=== PATIENT | male | born 1940 | race Caucasian/White ===

== ENCOUNTER 2017-03-24 12:11 | Emergency (ER) | payer MEDICARE, OTHER ==
[~2017-03-24] VITALS: Ht 167.6 cm; Wt 97.5 kg
[~2017-03-24 12:11] MED LIST: ASPI1TAB; ATEN50TA2 PO; BARLEY GRASS; CLOT1CRE71 TOP; COUM2.5T17 PO; CRES5TAB PO; FLAX100012 PO; NEXI40CA PO; PERCOCET PO; TYLE325T5 PO
[2017-03-24] MEDS ORDERED: HYDR-3713 PO (12:22)
[2017-03-24] MEDS ORDERED: MUPI30CR (12:22)
[2017-03-24] MEDS ORDERED: LAMI1CRE EX (14:22)
[2017-03-24 14:31] VITALS: BP 156/97
== END 2017-03-24 14:32 | disposition home or self-care (01) ==
LOC: M ED 12:11
DX: L30.9 Dermatitis, unspecified (principal); L08.9 Local infection of the skin and subcutaneous tissue, unspecified; I10 Essential (primary) hypertension; E78.00 Pure hypercholesterolemia, unspecified; N40.0 Benign prostatic hyperplasia without lower urinary tract symptoms; K76.9 Liver disease, unspecified; Z79.899 Other long term (current) drug therapy; Z79.82 Long term (current) use of aspirin; Z86.73 Personal history of transient ischemic attack (TIA), and cerebral infarction without residual deficits

== ENCOUNTER → 2019-02-11 | Outpatient (CLI) | payer MEDICARE, OTHER ==
[~2019-02-11] MED LIST changes: -ASPI1TAB; +ASPI81TA26; +HYDR-3713 PO; +LAMI1CRE EX; +MUPI30CR
--- NOTE | 2019-02-11 12:38 | REP ---
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 There is slightly increased vascular flow in the soft tissues anterolateral to the right proximal tibia on the vascular phase of the study. On the soft tissue phase of the study there is increased soft tissue uptake anterolateral to the proximal right tibia. On the skeletal phase of the study there is slightly increased uptake along the tibial plateau laterally along the tibial plateau medially of the right knee. There is no increased uptake in the distal femur. There is increased skeletal uptake in the left knee particularly the medial joint line compatible with osteoarthritis. Impression: There is soft tissue uptake and increased vascular flow in the soft tissues anterolateral to the proximal right tibia. There is slightly increased uptake in the medial and lateral portions of the right tibial plateau. There is no uptake in the distal right femur. The skeletal uptake pattern in the left knee is compatible with osteoarthritis. The study is performed with MDP that is radiolabeled with 22 mCi of technetium 99m. Electronically Signed by Jairo Lanier MD 02/11/2019 12:29 P
== END ==
LOC: M RAD 08:55
PROVIDERS: ATTEND Orthopaedic Surgery
DX: M25.561 Pain in right knee (principal)
CPT/HCPCS: 78315; A9503

== ENCOUNTER → 2021-02-09 | Outpatient (CLI) | payer MEDICARE, OTHER ==
--- NOTE | 2021-02-09 13:13 | REP ---
INDICATION: RENAL CYST. COMPARISON: None. FINDINGS: Multiple ultrasonographic images of the right kidney show the right kidney to measure 11.1 x 4.9 x 4.5 cm. The renal cortical echotexture is increased. There are no masses. There is suboptimal corticomedullary differentiation. There is no hydronephrosis. There are no perinephric fluid collections. Seen in the lower pole there is a 1.9 x 1.6 x 1.8 cm sized nearly anechoic structure which exhibits posterior wall enhancement and increased through transmission. Multiple ultrasonographic images of the left kidney show the left kidney to measure 10.7 x 4 x 5.2 cm.. The renal cortical echotexture is increased. There are no masses. There is suboptimal corticomedullary differentiation. There is no hydronephrosis. There are no perinephric fluid collections. IMPRESSION: Evidence of increased renal cortical echoes consistent with the clinical diagnosis of medical renal disease or age-related changes. There is a cyst in the inferior pole of the right kidney. <Electronically signed by Fabian Torres > 02/09/21 [id number]
== END ==
LOC: M RAD 11:47
PROVIDERS: ATTEND Nurse Practitioner Women's Health
DX: N28.1 Cyst of kidney, acquired (principal)

== ENCOUNTER 2022-05-12 11:34 | Emergency (ER) | payer MEDICARE, OTHER ==
[~2022-05-12] VITALS: Ht 167.6 cm; Wt 86.4 kg
[2022-05-12 12:00] VITALS: BP 130/80
== END 2022-05-12 15:10 | disposition home or self-care (01) ==
LOC: M ED 11:34
DX: F43.0 Acute stress reaction (principal); I25.2 Old myocardial infarction; I10 Essential (primary) hypertension; N40.0 Benign prostatic hyperplasia without lower urinary tract symptoms; Z86.73 Personal history of transient ischemic attack (TIA), and cerebral infarction without residual deficits; Z79.82 Long term (current) use of aspirin; Z79.899 Other long term (current) drug therapy

== ENCOUNTER → 2022-11-22 | Outpatient (CLI) | payer MEDICARE, OTHER | LOC: M RAD 13:39 | PROVIDERS: ATTEND Physician Assistant | DX: R10.9 Unspecified abdominal pain (principal) ==

== ENCOUNTER 2023-03-10 09:59 | Inpatient (IN) | payer MEDICARE, OTHER ==
[~2023-03-10] VITALS: Ht 170.2 cm; Wt 80.0 kg
[2023-03-10 11:22] LABS: BASO % 0.7 % (0.0-1.0); EOS # 0.1 10^3/uL (0.0-0.5); HEMATOCRIT 35.3 % (42.0-52.0); HEMOGLOBIN 11.6 g/dl (13.5-17.5); LYMPH # 1.1 10^3/uL (1.5-5.0); LYMPH % 18.3 % (24.0-44.0); MEAN CORPUSCULAR HEMOGLOBIN 29.9 pg (27.0-33.0); MEAN CORPUSCULAR HGB CONC 32.9 g/dl (32.0-36.5); MONO # 0.5 10^3/uL (0.0-0.8); MONO % 8.1 % (2.0-8.0); NEUTROPHILS # 4.3 10^3/uL (1.5-8.5); NEUTROPHILS % 71.6 % (36.0-66.0); PLATELET COUNT, AUTOMATED 205 10^3/uL (150-450); RED BLOOD COUNT 3.88 10^6/uL (4.30-6.10)
[2023-03-10 11:50] LABS: ALBUMIN 3.7 G/DL (3.2-5.2); ALKALINE PHOSPHATASE 94 U/L (46-116); ALT/SGPT 20 U/L (7.0-40); AST/SGOT 26 U/L (<34); BILIRUBIN,DIRECT 0.3 MG/DL (<0.4); BLOOD UREA NITROGEN 13 MG/DL (9-23); CARBON DIOXIDE LEVEL 25 MMOL/L (20-31); CHLORIDE LEVEL 109 MMOL/L (98-107); CK-MB VALUE MASS 5.8 NG/ML (<3.6); CREATININE FOR GFR 1.14 MG/DL (0.70-1.30); GLOMERULAR FILTRATION RATE > 60.0 (>35); GLUCOSE, FASTING 104 MG/DL (74-106); POTASSIUM SERUM 4.4 MMOL/L (3.5-5.1); SODIUM LEVEL 144 MMOL/L (136-145); TOTAL PROTEIN 6.6 G/DL (5.7-8.2)
[2023-03-10 11:53] LABS: CPK CREATINE PHOSPHOKINASE 636 U/L (46-171); MB/CK RELATIVE INDEX 0.91 (< OR =4)
[2023-03-10 15:55] LABS: RSV AMPLIFICATION NEGATIVE (NEGATIVE)
[2023-03-10] MEDS ORDERED: NS 1,000 ML IV SCH (15:55)
[2023-03-10] MEDS ORDERED: LIDOCAINE 2% 5ML JELLY UROJET TOP ONE (16:20)
[2023-03-10] MEDS ORDERED: ISOVUE-370 76% 100ML VIAL As Ordered ONE (17:21)
[2023-03-10] MEDS ORDERED: TAMSULOSIN 0.4 MG CAP PO ONE (17:35)
[2023-03-10] MEDS ORDERED: RAMELTEON 8 MG TAB (ROZEREM) PO PRN (17:35)
[2023-03-10] MEDS ORDERED: oxyCODONE 5MG TAB PO PRN (17:40)
[2023-03-10] MEDS ORDERED: FLOM0.4C39 PO (18:47)
[2023-03-10] MEDS ORDERED: CHOL125C5 PO (18:47)
[2023-03-10] MEDS ORDERED: OLAN1TAB20 PO (18:47)
[2023-03-10] MEDS ORDERED: ROZE8TAB16 PO (18:47)
[2023-03-10] MEDS ORDERED: CALC500T52 PO (18:47)
[2023-03-10] MEDS ORDERED: B-12100010 PO (18:47)
[2023-03-10] MEDS ORDERED: ATOR40TA75 PO (18:47)
[2023-03-10] MEDS ORDERED: HOME MED LIST COMPLETE! XX SCH (18:50)
[2023-03-10] MEDS ORDERED: OLANZapine 5 MG TAB PO ONE (18:50)
[2023-03-10] MEDS ORDERED: OLANZapine INTRAMUSCULAR 10MG VIAL IM PRN (19:40)
[2023-03-10 22:15] VITALS: BP 180/84; TEMP 97.9; O2SAT 96
[2023-03-10] MEDS: LIDOCAINE 5% (LIDODERM) PATCH TD SCH (22:19)
[2023-03-10] MEDS: METAMUCIL (PSYLLIUM) PACKET PO SCH (22:24)
[2023-03-10] MEDS: MIRALAX *UNIT DOSE* 17GM PACKET PO SCH (22:24)
[2023-03-10] MEDS: DICLOFENAC EPOLAMINE 1.3% PATCH TOP SCH (22:24)
[2023-03-10 22:47] VITALS: BP 168/94
[2023-03-10 23:42] VITALS: BP 151/87
[2023-03-11] MEDS ORDERED: HALOPERIDOL 5MG/ML 1ML VIAL IM STA (01:42)
[2023-03-11 06:37] VITALS: BP 123/87; TEMP 97.9; O2SAT 92
[2023-03-11] MEDS ORDERED: SENNA 8.6 MG TAB (SENOKOT) PO PRN (07:25)
[2023-03-11 08:00] VITALS: BP 138/86; TEMP 98.1; O2SAT 94
[2023-03-11] MEDS: VITAMIN D 1,000 INTERNATIONAL UNITS TABLET PO SCH (08:30)
[2023-03-11] MEDS: PANTOPRAZOLE 40MG TAB (PROTONIX) PO SCH (08:30)
[2023-03-11] MEDS: TAMSULOSIN 0.4 MG CAP PO SCH (08:30)
[2023-03-11] MEDS: ACETAMINOPHEN 500 MG TAB PO PRN (08:30)
[2023-03-11] MEDS: DICLOFENAC EPOLAMINE 1.3% PATCH TOP SCH ×2 (08:31→20:56)
[2023-03-11] MEDS: CYANOCOBALAMIN 500 MCG TAB PO SCH (08:31)
[2023-03-11] MEDS: LIDOCAINE 5% (LIDODERM) PATCH TD SCH (08:32)
[2023-03-11] MEDS: ENOXAPARIN 40MG/0.4ML SYRINGE (J1650 PER 10MG) SC SCH (08:33)
[2023-03-11] MEDS ORDERED: OLANZapine 10 MG TAB PO SCH ×3 (09:00)
[2023-03-11] MEDS: METAMUCIL (PSYLLIUM) PACKET PO SCH ×2 (09:00→20:57)
[2023-03-11] MEDS: MIRALAX *UNIT DOSE* 17GM PACKET PO SCH ×2 (09:00→20:57)
[2023-03-11] MEDS ORDERED: OLANZapine 5 MG TAB PO SCH (09:00)
[2023-03-11 09:06] LABS: MEAN CORPUSCULAR HEMOGLOBIN 30.2 pg (27.0-33.0); MEAN CORPUSCULAR HGB CONC 33.3 g/dl (32.0-36.5); MEAN CORPUSCULAR VOLUME 90.5 fl (80.0-96.0); PLATELET COUNT, AUTOMATED 206 10^3/uL (150-450); RED BLOOD COUNT 3.98 10^6/uL (4.30-6.10); WHITE BLOOD COUNT 5.6 10^3/uL (4.0-10.0)
[2023-03-11 09:23] LABS: BLOOD UREA NITROGEN 13 MG/DL (9-23); CALCIUM LEVEL 8.7 MG/DL (8.3-10.6); CARBON DIOXIDE LEVEL 25 MMOL/L (20-31); CHLORIDE LEVEL 110 MMOL/L (98-107); CREATININE FOR GFR 1.08 MG/DL (0.70-1.30); GLOMERULAR FILTRATION RATE > 60.0 (>35); GLUCOSE, FASTING 100 MG/DL (74-106); POTASSIUM SERUM 4.1 MMOL/L (3.5-5.1); SODIUM LEVEL 143 MMOL/L (136-145)
[2023-03-11 09:24] LABS: CPK CREATINE PHOSPHOKINASE 1016 U/L (46-171)
[2023-03-11 12:10] LABS: ALBUMIN 3.5 G/DL (3.2-5.2); ALKALINE PHOSPHATASE 98 U/L (46-116); ALT/SGPT 25 U/L (7.0-40); AST/SGOT 46 U/L (<34); BILIRUBIN,DIRECT 0.5 MG/DL (<0.4); BILIRUBIN,TOTAL 1.3 MG/DL (0.3-1.2); TOTAL PROTEIN 6.3 G/DL (5.7-8.2)
[2023-03-11] MEDS: LR 1,000 ML IV SCH ×2 (13:12→16:38)
[2023-03-11 14:00] VITALS: BP 134/86; TEMP 98.1; O2SAT 93
[2023-03-11] MEDS: RAMELTEON 8 MG TAB (ROZEREM) PO SCH (19:39)
[2023-03-11] MEDS: ATORVASTATIN 20 MG TAB PO SCH (19:41)
[2023-03-11 20:00] VITALS: BP 138/86; TEMP 98.1; O2SAT 94
[2023-03-12] MEDS: LR 1,000 ML IV SCH ×2 (04:26→11:50)
[2023-03-12 05:34] VITALS: BP 165/87; TEMP 98.1; O2SAT 94
[2023-03-12] MEDS: ACETAMINOPHEN 500 MG TAB PO PRN (05:51)
[2023-03-12 06:16] LABS: HEMATOCRIT 35.7 % (42.0-52.0); HEMOGLOBIN 11.9 g/dl (13.5-17.5); MEAN CORPUSCULAR HEMOGLOBIN 30.2 pg (27.0-33.0); MEAN CORPUSCULAR HGB CONC 33.3 g/dl (32.0-36.5); MEAN CORPUSCULAR VOLUME 90.6 fl (80.0-96.0); PLATELET COUNT, AUTOMATED 199 10^3/uL (150-450); RED BLOOD COUNT 3.94 10^6/uL (4.30-6.10); WHITE BLOOD COUNT 5.3 10^3/uL (4.0-10.0)
[2023-03-12 06:36] LABS: CPK CREATINE PHOSPHOKINASE 715 U/L (46-171)
[2023-03-12 06:39] LABS: ALBUMIN 3.1 G/DL (3.2-5.2); ALKALINE PHOSPHATASE 91 U/L (46-116); ALT/SGPT 26 U/L (7.0-40); AST/SGOT 41 U/L (<34); BILIRUBIN,DIRECT 0.4 MG/DL (<0.4); BILIRUBIN,TOTAL 0.8 MG/DL (0.3-1.2); BLOOD UREA NITROGEN 11 MG/DL (9-23); CALCIUM LEVEL 8.6 MG/DL (8.3-10.6); CARBON DIOXIDE LEVEL 26 MMOL/L (20-31); CHLORIDE LEVEL 110 MMOL/L (98-107); CREATININE FOR GFR 1.09 MG/DL (0.70-1.30); GLOMERULAR FILTRATION RATE > 60.0 (>35); GLUCOSE, FASTING 105 MG/DL (74-106); POTASSIUM SERUM 4.4 MMOL/L (3.5-5.1); SODIUM LEVEL 144 MMOL/L (136-145); TOTAL PROTEIN 5.9 G/DL (5.7-8.2)
[2023-03-12] MEDS: MIRALAX *UNIT DOSE* 17GM PACKET PO SCH ×2 (09:23→20:42)
[2023-03-12] MEDS: DICLOFENAC EPOLAMINE 1.3% PATCH TOP SCH ×2 (09:23→20:40)
[2023-03-12] MEDS: ENOXAPARIN 40MG/0.4ML SYRINGE (J1650 PER 10MG) SC SCH (09:23)
[2023-03-12] MEDS: METAMUCIL (PSYLLIUM) PACKET PO SCH ×2 (09:23→20:42)
[2023-03-12] MEDS: LIDOCAINE 5% (LIDODERM) PATCH TD SCH (09:23)
[2023-03-12] MEDS: CYANOCOBALAMIN 500 MCG TAB PO SCH (09:24)
[2023-03-12] MEDS: VITAMIN D 1,000 INTERNATIONAL UNITS TABLET PO SCH (09:24)
[2023-03-12] MEDS: TAMSULOSIN 0.4 MG CAP PO SCH (09:24)
[2023-03-12] MEDS: PANTOPRAZOLE 40MG TAB (PROTONIX) PO SCH (09:24)
[2023-03-12 14:00] VITALS: BP 140/70; TEMP 97.9; O2SAT 97
[2023-03-12 19:53] VITALS: BP 103/57; TEMP 98.1; O2SAT 94
[2023-03-12] MEDS: FINASTERIDE 5MG TAB PO SCH (20:42)
[2023-03-12] MEDS: ATORVASTATIN 20 MG TAB PO SCH (20:42)
[2023-03-12] MEDS: RAMELTEON 8 MG TAB (ROZEREM) PO SCH (20:42)
[2023-03-13 04:53] VITALS: BP 149/76; TEMP 97.3; O2SAT 97
[2023-03-13] MEDS: LR 1,000 ML IV SCH (05:14)
[2023-03-13 05:58] LABS: HEMATOCRIT 34.7 % (42.0-52.0); HEMOGLOBIN 11.4 g/dl (13.5-17.5); MEAN CORPUSCULAR HEMOGLOBIN 29.9 pg (27.0-33.0); MEAN CORPUSCULAR HGB CONC 32.9 g/dl (32.0-36.5); MEAN CORPUSCULAR VOLUME 91.1 fl (80.0-96.0); PLATELET COUNT, AUTOMATED 201 10^3/uL (150-450); RED BLOOD COUNT 3.81 10^6/uL (4.30-6.10); WHITE BLOOD COUNT 5.3 10^3/uL (4.0-10.0)
[2023-03-13 06:28] LABS: CPK CREATINE PHOSPHOKINASE 317 U/L (46-171)
[2023-03-13 06:29] LABS: ALKALINE PHOSPHATASE 82 U/L (46-116); ALT/SGPT 23 U/L (7.0-40); AST/SGOT 28 U/L (<34); BILIRUBIN,DIRECT 0.3 MG/DL (<0.4); BILIRUBIN,TOTAL 0.6 MG/DL (0.3-1.2); BLOOD UREA NITROGEN 12 MG/DL (9-23); CALCIUM LEVEL 8.8 MG/DL (8.3-10.6); CARBON DIOXIDE LEVEL 24 MMOL/L (20-31); CHLORIDE LEVEL 111 MMOL/L (98-107); CREATININE FOR GFR 1.04 MG/DL (0.70-1.30); GLOMERULAR FILTRATION RATE > 60.0 (>35); GLUCOSE, FASTING 98 MG/DL (74-106); POTASSIUM SERUM 4.3 MMOL/L (3.5-5.1); SODIUM LEVEL 144 MMOL/L (136-145); TOTAL PROTEIN 5.6 G/DL (5.7-8.2)
[2023-03-13] MEDS: METAMUCIL (PSYLLIUM) PACKET PO SCH ×2 (09:00→20:52)
[2023-03-13] MEDS: MIRALAX *UNIT DOSE* 17GM PACKET PO SCH ×2 (09:00→20:52)
[2023-03-13] MEDS: PANTOPRAZOLE 40MG TAB (PROTONIX) PO SCH (09:42)
[2023-03-13] MEDS: VITAMIN D 1,000 INTERNATIONAL UNITS TABLET PO SCH (09:42)
[2023-03-13] MEDS: CYANOCOBALAMIN 500 MCG TAB PO SCH (09:42)
[2023-03-13] MEDS: DICLOFENAC EPOLAMINE 1.3% PATCH TOP SCH ×2 (09:43→20:48)
[2023-03-13] MEDS: TAMSULOSIN 0.4 MG CAP PO SCH (09:43)
[2023-03-13] MEDS: LIDOCAINE 5% (LIDODERM) PATCH TD SCH (09:43)
[2023-03-13] MEDS: ENOXAPARIN 40MG/0.4ML SYRINGE (J1650 PER 10MG) SC SCH (09:44)
[2023-03-13 14:00] VITALS: BP 160/80; TEMP 97.9; O2SAT 95
[2023-03-13] MEDS: ACETAMINOPHEN 500 MG TAB PO PRN (17:17)
[2023-03-13 19:00] VITALS: BP 144/77; TEMP 98.1; O2SAT 96
[2023-03-13] MEDS: FINASTERIDE 5MG TAB PO SCH (20:48)
[2023-03-13] MEDS: ATORVASTATIN 20 MG TAB PO SCH (20:48)
[2023-03-13] MEDS: RAMELTEON 8 MG TAB (ROZEREM) PO SCH (20:48)
[2023-03-14 06:14] VITALS: BP 147/78; TEMP 98.2; O2SAT 96
[2023-03-14 06:25] LABS: HEMATOCRIT 34.7 % (42.0-52.0); HEMOGLOBIN 11.6 g/dl (13.5-17.5); MEAN CORPUSCULAR HEMOGLOBIN 30.1 pg (27.0-33.0); MEAN CORPUSCULAR HGB CONC 33.4 g/dl (32.0-36.5); MEAN CORPUSCULAR VOLUME 90.1 fl (80.0-96.0); PLATELET COUNT, AUTOMATED 203 10^3/uL (150-450); RED BLOOD COUNT 3.85 10^6/uL (4.30-6.10); WHITE BLOOD COUNT 4.9 10^3/uL (4.0-10.0)
[2023-03-14 06:53] LABS: BLOOD UREA NITROGEN 14 MG/DL (9-23); CALCIUM LEVEL 8.6 MG/DL (8.3-10.6); CARBON DIOXIDE LEVEL 26 MMOL/L (20-31); CHLORIDE LEVEL 109 MMOL/L (98-107); CREATININE FOR GFR 1.05 MG/DL (0.70-1.30); GLOMERULAR FILTRATION RATE > 60.0 (>35); GLUCOSE, FASTING 93 MG/DL (74-106); POTASSIUM SERUM 4.1 MMOL/L (3.5-5.1); SODIUM LEVEL 143 MMOL/L (136-145)
[2023-03-14] MEDS: TAMSULOSIN 0.4 MG CAP PO SCH (08:37)
[2023-03-14] MEDS: VITAMIN D 1,000 INTERNATIONAL UNITS TABLET PO SCH (08:37)
[2023-03-14] MEDS: ENOXAPARIN 40MG/0.4ML SYRINGE (J1650 PER 10MG) SC SCH (08:37)
[2023-03-14] MEDS: CYANOCOBALAMIN 500 MCG TAB PO SCH (08:37)
[2023-03-14] MEDS: PANTOPRAZOLE 40MG TAB (PROTONIX) PO SCH (08:37)
[2023-03-14] MEDS: MIRALAX *UNIT DOSE* 17GM PACKET PO SCH ×2 (08:37→20:17)
[2023-03-14] MEDS: METAMUCIL (PSYLLIUM) PACKET PO SCH ×2 (08:37→20:17)
[2023-03-14] MEDS: LIDOCAINE 5% (LIDODERM) PATCH TD SCH (08:38)
[2023-03-14] MEDS: DICLOFENAC EPOLAMINE 1.3% PATCH TOP SCH ×2 (08:38→20:17)
[2023-03-14] MEDS: FINASTERIDE 5MG TAB PO SCH (20:17)
[2023-03-14] MEDS: ATORVASTATIN 20 MG TAB PO SCH (20:17)
[2023-03-14] MEDS: RAMELTEON 8 MG TAB (ROZEREM) PO SCH (20:17)
[2023-03-14] MEDS ORDERED: OLANZapine 2.5MG TABLET PO SCH (21:00)
[2023-03-15 06:00] VITALS: BP 153/84; TEMP 98.4; O2SAT 98
[2023-03-15 06:42] LABS: HEMATOCRIT 33.6 % (42.0-52.0); HEMOGLOBIN 11.3 g/dl (13.5-17.5); MEAN CORPUSCULAR HEMOGLOBIN 30.1 pg (27.0-33.0); MEAN CORPUSCULAR HGB CONC 33.6 g/dl (32.0-36.5); MEAN CORPUSCULAR VOLUME 89.6 fl (80.0-96.0); PLATELET COUNT, AUTOMATED 208 10^3/uL (150-450); RED BLOOD COUNT 3.75 10^6/uL (4.30-6.10); WHITE BLOOD COUNT 4.4 10^3/uL (4.0-10.0)
[2023-03-15 07:13] LABS: BLOOD UREA NITROGEN 16 MG/DL (9-23); CALCIUM LEVEL 8.6 MG/DL (8.3-10.6); CARBON DIOXIDE LEVEL 25 MMOL/L (20-31); CHLORIDE LEVEL 110 MMOL/L (98-107); CREATININE FOR GFR 1.04 MG/DL (0.70-1.30); GLOMERULAR FILTRATION RATE > 60.0 (>35); GLUCOSE, FASTING 94 MG/DL (74-106); POTASSIUM SERUM 4.1 MMOL/L (3.5-5.1); SODIUM LEVEL 144 MMOL/L (136-145)
[2023-03-15] MEDS: DICLOFENAC EPOLAMINE 1.3% PATCH TOP SCH ×2 (09:56→20:46)
[2023-03-15] MEDS: ENOXAPARIN 40MG/0.4ML SYRINGE (J1650 PER 10MG) SC SCH (09:56)
[2023-03-15] MEDS: VITAMIN D 1,000 INTERNATIONAL UNITS TABLET PO SCH (09:57)
[2023-03-15] MEDS: CYANOCOBALAMIN 500 MCG TAB PO SCH (09:57)
[2023-03-15] MEDS: TAMSULOSIN 0.4 MG CAP PO SCH (09:57)
[2023-03-15] MEDS: METAMUCIL (PSYLLIUM) PACKET PO SCH ×2 (09:57→20:45)
[2023-03-15] MEDS: PANTOPRAZOLE 40MG TAB (PROTONIX) PO SCH (09:57)
[2023-03-15] MEDS: MIRALAX *UNIT DOSE* 17GM PACKET PO SCH ×2 (09:57→20:45)
[2023-03-15] MEDS: ATORVASTATIN 20 MG TAB PO SCH (20:45)
[2023-03-15] MEDS: RAMELTEON 8 MG TAB (ROZEREM) PO SCH (20:45)
[2023-03-15] MEDS: FINASTERIDE 5MG TAB PO SCH (20:45)
[2023-03-16 06:00] VITALS: BP 150/83; TEMP 98.6; O2SAT 95
[2023-03-16 06:30] LABS: HEMATOCRIT 32.8 % (42.0-52.0); HEMOGLOBIN 11.2 g/dl (13.5-17.5); MEAN CORPUSCULAR HEMOGLOBIN 30.8 pg (27.0-33.0); MEAN CORPUSCULAR HGB CONC 34.1 g/dl (32.0-36.5); MEAN CORPUSCULAR VOLUME 90.1 fl (80.0-96.0); PLATELET COUNT, AUTOMATED 226 10^3/uL (150-450); RED BLOOD COUNT 3.64 10^6/uL (4.30-6.10); WHITE BLOOD COUNT 5.5 10^3/uL (4.0-10.0)
[2023-03-16 06:44] LABS: BLOOD UREA NITROGEN 18 MG/DL (9-23); CALCIUM LEVEL 8.4 MG/DL (8.3-10.6); CARBON DIOXIDE LEVEL 25 MMOL/L (20-31); CHLORIDE LEVEL 108 MMOL/L (98-107); CREATININE FOR GFR 1.12 MG/DL (0.70-1.30); GLOMERULAR FILTRATION RATE > 60.0 (>35); GLUCOSE, FASTING 101 MG/DL (74-106); POTASSIUM SERUM 4.1 MMOL/L (3.5-5.1); SODIUM LEVEL 143 MMOL/L (136-145)
[2023-03-16] MEDS: ENOXAPARIN 40MG/0.4ML SYRINGE (J1650 PER 10MG) SC SCH (09:34)
[2023-03-16] MEDS: DICLOFENAC EPOLAMINE 1.3% PATCH TOP SCH ×2 (09:34→21:41)
[2023-03-16] MEDS: VITAMIN D 1,000 INTERNATIONAL UNITS TABLET PO SCH (09:35)
[2023-03-16] MEDS: TAMSULOSIN 0.4 MG CAP PO SCH (09:35)
[2023-03-16] MEDS: MIRALAX *UNIT DOSE* 17GM PACKET PO SCH ×2 (09:35→21:41)
[2023-03-16] MEDS: CYANOCOBALAMIN 500 MCG TAB PO SCH (09:35)
[2023-03-16] MEDS: PANTOPRAZOLE 40MG TAB (PROTONIX) PO SCH (09:35)
[2023-03-16] MEDS: METAMUCIL (PSYLLIUM) PACKET PO SCH ×2 (09:35→21:41)
[2023-03-16] MEDS: OLANZapine 5 MG TAB PO PRN (13:41)
[2023-03-16] MEDS: FINASTERIDE 5MG TAB PO SCH (21:41)
[2023-03-16] MEDS: RAMELTEON 8 MG TAB (ROZEREM) PO SCH (21:41)
[2023-03-16] MEDS: ATORVASTATIN 20 MG TAB PO SCH (21:41)
[2023-03-17 06:15] VITALS: BP 156/82; TEMP 99; O2SAT 95
[2023-03-17] MEDS: MIRALAX *UNIT DOSE* 17GM PACKET PO SCH ×2 (08:27→21:49)
[2023-03-17] MEDS: METAMUCIL (PSYLLIUM) PACKET PO SCH ×2 (08:27→21:48)
[2023-03-17] MEDS: TAMSULOSIN 0.4 MG CAP PO SCH (08:28)
[2023-03-17] MEDS: DICLOFENAC EPOLAMINE 1.3% PATCH TOP SCH ×2 (08:28→21:48)
[2023-03-17] MEDS: PANTOPRAZOLE 40MG TAB (PROTONIX) PO SCH (08:28)
[2023-03-17] MEDS: CYANOCOBALAMIN 500 MCG TAB PO SCH (08:28)
[2023-03-17] MEDS: VITAMIN D 1,000 INTERNATIONAL UNITS TABLET PO SCH (08:28)
[2023-03-17] MEDS: ENOXAPARIN 40MG/0.4ML SYRINGE (J1650 PER 10MG) SC SCH (08:28)
[2023-03-17] MEDS: oxyCODONE 5MG TAB PO PRN (13:29)
[2023-03-17] MEDS: FINASTERIDE 5MG TAB PO SCH (21:48)
[2023-03-17] MEDS: RAMELTEON 8 MG TAB (ROZEREM) PO SCH (21:48)
[2023-03-17] MEDS: ATORVASTATIN 20 MG TAB PO SCH (21:48)
[2023-03-17] MEDS: OLANZapine 5 MG TAB PO PRN (21:48)
[2023-03-18] MEDS: ACETAMINOPHEN 500 MG TAB PO PRN (01:20)
[2023-03-18 06:43] VITALS: BP 136/60; TEMP 98.2; O2SAT 97
[2023-03-18] MEDS: PANTOPRAZOLE 40MG TAB (PROTONIX) PO SCH (08:54)
[2023-03-18] MEDS: CYANOCOBALAMIN 500 MCG TAB PO SCH (08:54)
[2023-03-18] MEDS: DICLOFENAC EPOLAMINE 1.3% PATCH TOP SCH ×2 (08:54→20:38)
[2023-03-18] MEDS: METAMUCIL (PSYLLIUM) PACKET PO SCH ×2 (08:54→20:17)
[2023-03-18] MEDS: TAMSULOSIN 0.4 MG CAP PO SCH (08:54)
[2023-03-18] MEDS: ENOXAPARIN 40MG/0.4ML SYRINGE (J1650 PER 10MG) SC SCH (08:54)
[2023-03-18] MEDS: MIRALAX *UNIT DOSE* 17GM PACKET PO SCH ×2 (08:54→20:17)
[2023-03-18] MEDS: VITAMIN D 1,000 INTERNATIONAL UNITS TABLET PO SCH (08:55)
[2023-03-18 11:54] VITALS: BP 111/73; TEMP 97.9; O2SAT 96
[2023-03-18] MEDS: RAMELTEON 8 MG TAB (ROZEREM) PO SCH (20:38)
[2023-03-18] MEDS: FINASTERIDE 5MG TAB PO SCH (20:38)
[2023-03-18] MEDS: OLANZapine 5 MG TAB PO PRN (20:38)
[2023-03-18] MEDS: ATORVASTATIN 20 MG TAB PO SCH (20:38)
[2023-03-19 06:00] VITALS: BP 144/93; TEMP 98.8; O2SAT 95
[2023-03-19] MEDS: METAMUCIL (PSYLLIUM) PACKET PO SCH ×2 (07:59→21:27)
[2023-03-19] MEDS: MIRALAX *UNIT DOSE* 17GM PACKET PO SCH ×2 (08:00→21:26)
[2023-03-19] MEDS: PANTOPRAZOLE 40MG TAB (PROTONIX) PO SCH (08:54)
[2023-03-19] MEDS: CYANOCOBALAMIN 500 MCG TAB PO SCH (08:55)
[2023-03-19] MEDS: TAMSULOSIN 0.4 MG CAP PO SCH (08:55)
[2023-03-19] MEDS: VITAMIN D 1,000 INTERNATIONAL UNITS TABLET PO SCH (08:55)
[2023-03-19] MEDS: ENOXAPARIN 40MG/0.4ML SYRINGE (J1650 PER 10MG) SC SCH ×2 (08:55→08:59)
[2023-03-19] MEDS: DICLOFENAC EPOLAMINE 1.3% PATCH TOP SCH ×2 (08:56→21:53)
[2023-03-19] MEDS: OLANZapine 5 MG TAB PO PRN (21:19)
[2023-03-19] MEDS: RAMELTEON 8 MG TAB (ROZEREM) PO SCH (21:19)
[2023-03-19] MEDS: ATORVASTATIN 20 MG TAB PO SCH (21:20)
[2023-03-19] MEDS: FINASTERIDE 5MG TAB PO SCH (21:20)
[2023-03-20] MEDS: ACETAMINOPHEN 500 MG TAB PO PRN ×2 (03:52→19:58)
[2023-03-20 06:00] VITALS: BP 150/93; TEMP 97.7; O2SAT 93
[2023-03-20] MEDS: VITAMIN D 1,000 INTERNATIONAL UNITS TABLET PO SCH (08:56)
[2023-03-20] MEDS: DICLOFENAC EPOLAMINE 1.3% PATCH TOP SCH ×2 (08:56→20:00)
[2023-03-20] MEDS: MIRALAX *UNIT DOSE* 17GM PACKET PO SCH ×2 (08:57→19:30)
[2023-03-20] MEDS: CYANOCOBALAMIN 500 MCG TAB PO SCH (08:57)
[2023-03-20] MEDS: TAMSULOSIN 0.4 MG CAP PO SCH (08:57)
[2023-03-20] MEDS: ENOXAPARIN 40MG/0.4ML SYRINGE (J1650 PER 10MG) SC SCH (08:57)
[2023-03-20] MEDS: PANTOPRAZOLE 40MG TAB (PROTONIX) PO SCH (08:57)
[2023-03-20] MEDS: METAMUCIL (PSYLLIUM) PACKET PO SCH ×2 (08:57→19:30)
[2023-03-20] MEDS: FINASTERIDE 5MG TAB PO SCH (19:57)
[2023-03-20] MEDS: ATORVASTATIN 20 MG TAB PO SCH (19:57)
[2023-03-20] MEDS: RAMELTEON 8 MG TAB (ROZEREM) PO SCH (19:58)
[2023-03-20] MEDS: OLANZapine 5 MG TAB PO PRN (19:58)
[2023-03-21] MEDS: oxyCODONE 5MG TAB PO PRN ×3 (00:31→10:47)
[2023-03-21] MEDS: ACETAMINOPHEN 500 MG TAB PO PRN (01:54)
[2023-03-21] MEDS: PANTOPRAZOLE 40MG TAB (PROTONIX) PO SCH (08:44)
[2023-03-21] MEDS: CYANOCOBALAMIN 500 MCG TAB PO SCH (08:44)
[2023-03-21] MEDS: TAMSULOSIN 0.4 MG CAP PO SCH (08:44)
[2023-03-21] MEDS: VITAMIN D 1,000 INTERNATIONAL UNITS TABLET PO SCH (08:44)
[2023-03-21] MEDS: DICLOFENAC EPOLAMINE 1.3% PATCH TOP SCH ×2 (08:45→19:49)
[2023-03-21] MEDS: ENOXAPARIN 40MG/0.4ML SYRINGE (J1650 PER 10MG) SC SCH (08:45)
[2023-03-21] MEDS: MIRALAX *UNIT DOSE* 17GM PACKET PO SCH ×2 (08:50→19:48)
[2023-03-21] MEDS: METAMUCIL (PSYLLIUM) PACKET PO SCH ×2 (08:50→19:48)
[2023-03-21] MEDS: RAMELTEON 8 MG TAB (ROZEREM) PO SCH (19:48)
[2023-03-21] MEDS: ATORVASTATIN 20 MG TAB PO SCH (19:48)
[2023-03-21] MEDS: FINASTERIDE 5MG TAB PO SCH (19:48)
[2023-03-22] MEDS: OLANZapine 5 MG TAB PO PRN (03:17)
[2023-03-22 04:57] VITALS: BP 138/83; TEMP 99; O2SAT 99
[2023-03-22] MEDS: CYANOCOBALAMIN 500 MCG TAB PO SCH (10:25)
[2023-03-22] MEDS: MIRALAX *UNIT DOSE* 17GM PACKET PO SCH ×2 (10:25→21:00)
[2023-03-22] MEDS: DICLOFENAC EPOLAMINE 1.3% PATCH TOP SCH ×2 (10:25→21:08)
[2023-03-22] MEDS: METAMUCIL (PSYLLIUM) PACKET PO SCH ×2 (10:25→21:00)
[2023-03-22] MEDS: TAMSULOSIN 0.4 MG CAP PO SCH (10:25)
[2023-03-22] MEDS: ENOXAPARIN 40MG/0.4ML SYRINGE (J1650 PER 10MG) SC SCH (10:25)
[2023-03-22] MEDS: VITAMIN D 1,000 INTERNATIONAL UNITS TABLET PO SCH (10:25)
[2023-03-22] MEDS: PANTOPRAZOLE 40MG TAB (PROTONIX) PO SCH (10:25)
[2023-03-22] MEDS ORDERED: OLANZapine INTRAMUSCULAR 10MG VIAL IM ONE (11:10)
[2023-03-22 14:32] LABS: BASO % 0.7 % (0.0-1.0); EOS # 0.1 10^3/uL (0.0-0.5); EOS % 1.8 % (0.0-3.0); HEMOGLOBIN 12.2 g/dl (13.5-17.5); LYMPH # 1.1 10^3/uL (1.5-5.0); LYMPH % 19.5 % (24.0-44.0); MEAN CORPUSCULAR HEMOGLOBIN 30.1 pg (27.0-33.0); MEAN CORPUSCULAR VOLUME 91.4 fl (80.0-96.0); MONO # 0.5 10^3/uL (0.0-0.8); MONO % 8.4 % (2.0-8.0); NEUTROPHILS # 3.9 10^3/uL (1.5-8.5); NEUTROPHILS % 69.2 % (36.0-66.0); PLATELET COUNT, AUTOMATED 242 10^3/uL (150-450); RED BLOOD COUNT 4.05 10^6/uL (4.30-6.10); WHITE BLOOD COUNT 5.6 10^3/uL (4.0-10.0)
[2023-03-22 14:48] LABS: ALBUMIN 3.6 G/DL (3.2-5.2); ALKALINE PHOSPHATASE 92 U/L (46-116); ALT/SGPT 24 U/L (7.0-40); AST/SGOT 13 U/L (<34); BILIRUBIN,TOTAL 0.5 MG/DL (0.3-1.2); BLOOD UREA NITROGEN 21 MG/DL (9-23); CALCIUM LEVEL 9.2 MG/DL (8.3-10.6); CARBON DIOXIDE LEVEL 24 MMOL/L (20-31); CHLORIDE LEVEL 110 MMOL/L (98-107); CPK CREATINE PHOSPHOKINASE 115 U/L (46-171); CREATININE FOR GFR 1.03 MG/DL (0.70-1.30); GLOMERULAR FILTRATION RATE > 60.0 (>35); GLUCOSE, FASTING 115 MG/DL (74-106); POTASSIUM SERUM 4.3 MMOL/L (3.5-5.1); SODIUM LEVEL 143 MMOL/L (136-145); TOTAL PROTEIN 6.7 G/DL (5.7-8.2)
[2023-03-22] MEDS: oxyCODONE 5MG TAB PO PRN (16:35)
[2023-03-22] MEDS: CEFDINIR 300 MG CAP (OMNICEF) PO SCH (21:07)
[2023-03-22] MEDS: ATORVASTATIN 20 MG TAB PO SCH (21:07)
[2023-03-22] MEDS: FINASTERIDE 5MG TAB PO SCH (21:07)
[2023-03-22] MEDS: OLANZapine 5 MG TAB PO SCH (21:08)
[2023-03-22] MEDS: RAMELTEON 8 MG TAB (ROZEREM) PO SCH (21:08)
[2023-03-23] MEDS: oxyCODONE 5MG TAB PO PRN ×2 (01:07→11:41)
[2023-03-23 05:25] VITALS: BP 134/81; TEMP 99; O2SAT 94
[2023-03-23] MEDS: MIRALAX *UNIT DOSE* 17GM PACKET PO SCH ×2 (11:39→21:00)
[2023-03-23] MEDS: DICLOFENAC EPOLAMINE 1.3% PATCH TOP SCH ×2 (11:40→22:59)
[2023-03-23] MEDS: METAMUCIL (PSYLLIUM) PACKET PO SCH ×2 (11:40→21:00)
[2023-03-23] MEDS: ENOXAPARIN 40MG/0.4ML SYRINGE (J1650 PER 10MG) SC SCH (11:40)
[2023-03-23] MEDS: CYANOCOBALAMIN 500 MCG TAB PO SCH (11:41)
[2023-03-23] MEDS: VITAMIN D 1,000 INTERNATIONAL UNITS TABLET PO SCH (11:41)
[2023-03-23] MEDS: PANTOPRAZOLE 40MG TAB (PROTONIX) PO SCH (11:41)
[2023-03-23] MEDS: TAMSULOSIN 0.4 MG CAP PO SCH (11:42)
[2023-03-23] MEDS: CEFDINIR 300 MG CAP (OMNICEF) PO SCH ×2 (11:42→21:00)
[2023-03-23] MEDS: RAMELTEON 8 MG TAB (ROZEREM) PO SCH (21:00)
[2023-03-23] MEDS: OLANZapine 5 MG TAB PO SCH (21:00)
[2023-03-23] MEDS: FINASTERIDE 5MG TAB PO SCH (21:00)
[2023-03-23] MEDS: ATORVASTATIN 20 MG TAB PO SCH (21:00)
[2023-03-24 06:00] VITALS: BP 134/74; TEMP 97.7; O2SAT 99
[2023-03-24] MEDS: METAMUCIL (PSYLLIUM) PACKET PO SCH ×2 (08:38→20:25)
[2023-03-24] MEDS: MIRALAX *UNIT DOSE* 17GM PACKET PO SCH ×2 (08:38→20:25)
[2023-03-24] MEDS: CYANOCOBALAMIN 500 MCG TAB PO SCH (08:38)
[2023-03-24] MEDS: TAMSULOSIN 0.4 MG CAP PO SCH (08:38)
[2023-03-24] MEDS: PANTOPRAZOLE 40MG TAB (PROTONIX) PO SCH (08:38)
[2023-03-24] MEDS: CEFDINIR 300 MG CAP (OMNICEF) PO SCH ×2 (08:38→20:26)
[2023-03-24] MEDS: DICLOFENAC EPOLAMINE 1.3% PATCH TOP SCH ×3 (08:38→20:26)
[2023-03-24] MEDS: ENOXAPARIN 40MG/0.4ML SYRINGE (J1650 PER 10MG) SC SCH ×2 (08:38→08:48)
[2023-03-24] MEDS: VITAMIN D 1,000 INTERNATIONAL UNITS TABLET PO SCH (08:39)
[2023-03-24] MEDS: ATORVASTATIN 20 MG TAB PO SCH (20:26)
[2023-03-24] MEDS: FINASTERIDE 5MG TAB PO SCH (20:26)
[2023-03-24] MEDS: OLANZapine 5 MG TAB PO SCH (20:26)
[2023-03-24] MEDS: RAMELTEON 8 MG TAB (ROZEREM) PO SCH (20:26)
[2023-03-24] MEDS: oxyCODONE 5MG TAB PO PRN (20:27)
[2023-03-25 06:00] VITALS: BP 126/76; TEMP 98.1; O2SAT 97
[2023-03-25] MEDS: ENOXAPARIN 40MG/0.4ML SYRINGE (J1650 PER 10MG) SC SCH (08:51)
[2023-03-25] MEDS: VITAMIN D 1,000 INTERNATIONAL UNITS TABLET PO SCH (08:51)
[2023-03-25] MEDS: TAMSULOSIN 0.4 MG CAP PO SCH (08:51)
[2023-03-25] MEDS: CYANOCOBALAMIN 500 MCG TAB PO SCH (08:51)
[2023-03-25] MEDS: PANTOPRAZOLE 40MG TAB (PROTONIX) PO SCH (08:51)
[2023-03-25] MEDS: METAMUCIL (PSYLLIUM) PACKET PO SCH ×2 (08:52→21:00)
[2023-03-25] MEDS: DICLOFENAC EPOLAMINE 1.3% PATCH TOP SCH ×2 (09:00→21:11)
[2023-03-25] MEDS: CEFDINIR 300 MG CAP (OMNICEF) PO SCH ×2 (09:00→21:11)
[2023-03-25] MEDS: MIRALAX *UNIT DOSE* 17GM PACKET PO SCH ×2 (09:00→21:00)
[2023-03-25] MEDS: oxyCODONE 5MG TAB PO PRN (11:27)
[2023-03-25] MEDS: ATORVASTATIN 20 MG TAB PO SCH (21:11)
[2023-03-25] MEDS: FINASTERIDE 5MG TAB PO SCH (21:11)
[2023-03-25] MEDS: OLANZapine 5 MG TAB PO SCH (21:11)
[2023-03-25] MEDS: RAMELTEON 8 MG TAB (ROZEREM) PO SCH (21:11)
[2023-03-26] MEDS: DICLOFENAC EPOLAMINE 1.3% PATCH TOP SCH ×2 (12:41→21:00)
[2023-03-26] MEDS: METAMUCIL (PSYLLIUM) PACKET PO SCH ×2 (12:42→20:00)
[2023-03-26] MEDS: MIRALAX *UNIT DOSE* 17GM PACKET PO SCH ×2 (12:42→20:00)
[2023-03-26] MEDS: CYANOCOBALAMIN 500 MCG TAB PO SCH (12:42)
[2023-03-26] MEDS: VITAMIN D 1,000 INTERNATIONAL UNITS TABLET PO SCH (12:42)
[2023-03-26] MEDS: TAMSULOSIN 0.4 MG CAP PO SCH (12:42)
[2023-03-26] MEDS: PANTOPRAZOLE 40MG TAB (PROTONIX) PO SCH (12:42)
[2023-03-26] MEDS: ENOXAPARIN 40MG/0.4ML SYRINGE (J1650 PER 10MG) SC SCH (12:43)
[2023-03-26] MEDS: CEFDINIR 300 MG CAP (OMNICEF) PO SCH ×2 (13:04→20:28)
[2023-03-26] MEDS ORDERED: OLANZapine INTRAMUSCULAR 10MG VIAL IM PRN (14:35)
[2023-03-26] MEDS ORDERED: HALOPERIDOL 5MG/ML 1ML VIAL IM PRN (14:35)
[2023-03-26] MEDS: OLANZapine 5 MG TAB PO PRN (17:09)
[2023-03-26] MEDS: QUEtiapine FUMARATE 50MG TAB PO SCH (20:28)
[2023-03-26] MEDS: ATORVASTATIN 20 MG TAB PO SCH (20:28)
[2023-03-26] MEDS: RAMELTEON 8 MG TAB (ROZEREM) PO SCH (20:28)
[2023-03-26] MEDS: FINASTERIDE 5MG TAB PO SCH (20:28)
[2023-03-27] MEDS: oxyCODONE 5MG TAB PO PRN ×3 (01:05→20:38)
[2023-03-27 06:45] VITALS: BP 140/67; TEMP 98.2; O2SAT 97
[2023-03-27] MEDS: MIRALAX *UNIT DOSE* 17GM PACKET PO SCH ×2 (09:00→20:07)
[2023-03-27] MEDS: METAMUCIL (PSYLLIUM) PACKET PO SCH ×2 (09:00→20:07)
[2023-03-27] MEDS: CYANOCOBALAMIN 500 MCG TAB PO SCH (11:45)
[2023-03-27] MEDS: VITAMIN D 1,000 INTERNATIONAL UNITS TABLET PO SCH (11:46)
[2023-03-27] MEDS: DICLOFENAC EPOLAMINE 1.3% PATCH TOP SCH ×2 (11:46→20:45)
[2023-03-27] MEDS: ENOXAPARIN 40MG/0.4ML SYRINGE (J1650 PER 10MG) SC SCH (11:46)
[2023-03-27] MEDS: PANTOPRAZOLE 40MG TAB (PROTONIX) PO SCH (11:46)
[2023-03-27] MEDS: TAMSULOSIN 0.4 MG CAP PO SCH (11:46)
[2023-03-27] MEDS: CEFDINIR 300 MG CAP (OMNICEF) PO SCH ×2 (11:48→20:37)
[2023-03-27] MEDS: OLANZapine 5 MG TAB PO PRN (14:33)
[2023-03-27] MEDS: RAMELTEON 8 MG TAB (ROZEREM) PO SCH (20:36)
[2023-03-27] MEDS: QUEtiapine FUMARATE 50MG TAB PO SCH (20:36)
[2023-03-27] MEDS: ATORVASTATIN 20 MG TAB PO SCH (20:37)
[2023-03-27] MEDS: FINASTERIDE 5MG TAB PO SCH (20:37)
[2023-03-28 06:00] VITALS: BP 149/70; TEMP 97.5; O2SAT 98
[2023-03-28] MEDS: ENOXAPARIN 40MG/0.4ML SYRINGE (J1650 PER 10MG) SC SCH ×2 (09:00→10:47)
[2023-03-28] MEDS: DICLOFENAC EPOLAMINE 1.3% PATCH TOP SCH ×2 (10:46→21:00)
[2023-03-28] MEDS: MIRALAX *UNIT DOSE* 17GM PACKET PO SCH ×2 (10:46→19:40)
[2023-03-28] MEDS: METAMUCIL (PSYLLIUM) PACKET PO SCH ×2 (10:47→19:40)
[2023-03-28] MEDS: TAMSULOSIN 0.4 MG CAP PO SCH (10:47)
[2023-03-28] MEDS: CEFDINIR 300 MG CAP (OMNICEF) PO SCH ×2 (10:47→19:50)
[2023-03-28] MEDS: CYANOCOBALAMIN 500 MCG TAB PO SCH (10:48)
[2023-03-28] MEDS: VITAMIN D 1,000 INTERNATIONAL UNITS TABLET PO SCH (10:48)
[2023-03-28] MEDS: PANTOPRAZOLE 40MG TAB (PROTONIX) PO SCH (10:48)
[2023-03-28] MEDS: ATORVASTATIN 20 MG TAB PO SCH (19:50)
[2023-03-28] MEDS: RAMELTEON 8 MG TAB (ROZEREM) PO SCH (19:50)
[2023-03-28] MEDS: QUEtiapine FUMARATE 50MG TAB PO SCH (19:51)
[2023-03-28] MEDS: FINASTERIDE 5MG TAB PO SCH (19:51)
[2023-03-28] MEDS: oxyCODONE 5MG TAB PO PRN (19:52)
[2023-03-29] MEDS: OLANZapine 5 MG TAB PO PRN (02:44)
[2023-03-29 06:20] VITALS: BP 118/72; TEMP 97.9; O2SAT 94
[2023-03-29] MEDS: VITAMIN D 1,000 INTERNATIONAL UNITS TABLET PO SCH (09:42)
[2023-03-29] MEDS: TAMSULOSIN 0.4 MG CAP PO SCH (09:42)
[2023-03-29] MEDS: CYANOCOBALAMIN 500 MCG TAB PO SCH (09:42)
[2023-03-29] MEDS: oxyCODONE 5MG TAB PO PRN ×2 (09:42→18:06)
[2023-03-29] MEDS: PANTOPRAZOLE 40MG TAB (PROTONIX) PO SCH (09:42)
[2023-03-29] MEDS: MIRALAX *UNIT DOSE* 17GM PACKET PO SCH ×2 (09:50→21:57)
[2023-03-29] MEDS: DICLOFENAC EPOLAMINE 1.3% PATCH TOP SCH ×2 (09:50→21:58)
[2023-03-29] MEDS: METAMUCIL (PSYLLIUM) PACKET PO SCH ×2 (09:50→21:57)
[2023-03-29] MEDS: ENOXAPARIN 40MG/0.4ML SYRINGE (J1650 PER 10MG) SC SCH (09:50)
[2023-03-29] MEDS: CEFDINIR 300 MG CAP (OMNICEF) PO SCH (09:50)
[2023-03-29] MEDS: RAMELTEON 8 MG TAB (ROZEREM) PO SCH (21:58)
[2023-03-29] MEDS: FINASTERIDE 5MG TAB PO SCH (21:58)
[2023-03-29] MEDS: QUEtiapine FUMARATE 50MG TAB PO SCH (21:58)
[2023-03-29] MEDS: ATORVASTATIN 20 MG TAB PO SCH (21:58)
[2023-03-30 04:25] VITALS: BP 140/80; TEMP 98.2; O2SAT 95
[2023-03-30] MEDS: DICLOFENAC EPOLAMINE 1.3% PATCH TOP SCH ×2 (09:21→20:50)
[2023-03-30] MEDS: METAMUCIL (PSYLLIUM) PACKET PO SCH ×2 (09:21→19:26)
[2023-03-30] MEDS: MIRALAX *UNIT DOSE* 17GM PACKET PO SCH ×2 (09:21→19:50)
[2023-03-30] MEDS: PANTOPRAZOLE 40MG TAB (PROTONIX) PO SCH (09:22)
[2023-03-30] MEDS: VITAMIN D 1,000 INTERNATIONAL UNITS TABLET PO SCH (09:22)
[2023-03-30] MEDS: TAMSULOSIN 0.4 MG CAP PO SCH (09:22)
[2023-03-30] MEDS: ENOXAPARIN 40MG/0.4ML SYRINGE (J1650 PER 10MG) SC SCH (09:22)
[2023-03-30] MEDS: CYANOCOBALAMIN 500 MCG TAB PO SCH (09:22)
[2023-03-30] MEDS: OLANZapine 5 MG TAB PO PRN (15:01)
[2023-03-30] MEDS: oxyCODONE 5MG TAB PO PRN (15:02)
[2023-03-30] MEDS: ATORVASTATIN 20 MG TAB PO SCH (19:40)
[2023-03-30] MEDS: RAMELTEON 8 MG TAB (ROZEREM) PO SCH (19:40)
[2023-03-30] MEDS: FINASTERIDE 5MG TAB PO SCH (19:41)
[2023-03-30] MEDS: QUEtiapine FUMARATE 50MG TAB PO SCH (19:41)
[2023-03-31] MEDS: OLANZapine 5 MG TAB PO PRN ×2 (03:41→20:40)
[2023-03-31 04:49] VITALS: BP 127/58; TEMP 98.4; O2SAT 96
[2023-03-31] MEDS: VITAMIN D 1,000 INTERNATIONAL UNITS TABLET PO SCH (11:20)
[2023-03-31] MEDS: oxyCODONE 5MG TAB PO PRN ×2 (11:20→20:41)
[2023-03-31] MEDS: PANTOPRAZOLE 40MG TAB (PROTONIX) PO SCH (11:20)
[2023-03-31] MEDS: CYANOCOBALAMIN 500 MCG TAB PO SCH (11:20)
[2023-03-31] MEDS: TAMSULOSIN 0.4 MG CAP PO SCH (11:20)
[2023-03-31] MEDS: MIRALAX *UNIT DOSE* 17GM PACKET PO SCH ×2 (11:21→19:18)
[2023-03-31] MEDS: DICLOFENAC EPOLAMINE 1.3% PATCH TOP SCH ×2 (11:21→20:58)
[2023-03-31] MEDS: METAMUCIL (PSYLLIUM) PACKET PO SCH ×2 (11:21→19:18)
[2023-03-31] MEDS: ENOXAPARIN 40MG/0.4ML SYRINGE (J1650 PER 10MG) SC SCH (11:21)
[2023-03-31] MEDS: ATORVASTATIN 20 MG TAB PO SCH (20:39)
[2023-03-31] MEDS: FINASTERIDE 5MG TAB PO SCH (20:40)
[2023-03-31] MEDS: QUEtiapine FUMARATE 50MG TAB PO SCH (20:40)
[2023-03-31] MEDS: RAMELTEON 8 MG TAB (ROZEREM) PO SCH (20:40)
[2023-04-01 05:36] VITALS: BP 142/64; TEMP 97.7; O2SAT 97
[2023-04-01] MEDS: oxyCODONE 5MG TAB PO PRN ×2 (09:13→19:32)
[2023-04-01] MEDS: PANTOPRAZOLE 40MG TAB (PROTONIX) PO SCH (10:11)
[2023-04-01] MEDS: TAMSULOSIN 0.4 MG CAP PO SCH (10:11)
[2023-04-01] MEDS: VITAMIN D 1,000 INTERNATIONAL UNITS TABLET PO SCH (10:11)
[2023-04-01] MEDS: CYANOCOBALAMIN 500 MCG TAB PO SCH (10:12)
[2023-04-01] MEDS: ENOXAPARIN 40MG/0.4ML SYRINGE (J1650 PER 10MG) SC SCH (10:12)
[2023-04-01] MEDS: DICLOFENAC EPOLAMINE 1.3% PATCH TOP SCH ×2 (10:12→21:00)
[2023-04-01] MEDS: METAMUCIL (PSYLLIUM) PACKET PO SCH ×2 (10:12→19:26)
[2023-04-01] MEDS: MIRALAX *UNIT DOSE* 17GM PACKET PO SCH ×2 (10:12→19:26)
[2023-04-01] MEDS: QUEtiapine FUMARATE 50MG TAB PO SCH (19:30)
[2023-04-01] MEDS: RAMELTEON 8 MG TAB (ROZEREM) PO SCH (19:30)
[2023-04-01] MEDS: ATORVASTATIN 20 MG TAB PO SCH (19:31)
[2023-04-01] MEDS: OLANZapine 5 MG TAB PO PRN (19:31)
[2023-04-01] MEDS: FINASTERIDE 5MG TAB PO SCH (19:31)
[2023-04-02 05:29] VITALS: BP 154/75; TEMP 97.7; O2SAT 95
[2023-04-02] MEDS: DICLOFENAC EPOLAMINE 1.3% PATCH TOP SCH ×3 (09:00→21:05)
[2023-04-02] MEDS: MIRALAX *UNIT DOSE* 17GM PACKET PO SCH ×2 (11:13→21:00)
[2023-04-02] MEDS: CYANOCOBALAMIN 500 MCG TAB PO SCH (11:13)
[2023-04-02] MEDS: ENOXAPARIN 40MG/0.4ML SYRINGE (J1650 PER 10MG) SC SCH (11:13)
[2023-04-02] MEDS: TAMSULOSIN 0.4 MG CAP PO SCH (11:13)
[2023-04-02] MEDS: METAMUCIL (PSYLLIUM) PACKET PO SCH ×2 (11:13→21:00)
[2023-04-02] MEDS: VITAMIN D 1,000 INTERNATIONAL UNITS TABLET PO SCH (11:14)
[2023-04-02] MEDS: PANTOPRAZOLE 40MG TAB (PROTONIX) PO SCH (11:14)
[2023-04-02] MEDS: OLANZapine 5 MG TAB PO PRN ×2 (14:12→23:56)
[2023-04-02] MEDS: RAMELTEON 8 MG TAB (ROZEREM) PO SCH (21:05)
[2023-04-02] MEDS: ATORVASTATIN 20 MG TAB PO SCH (21:05)
[2023-04-02] MEDS: QUEtiapine FUMARATE 50MG TAB PO SCH (21:05)
[2023-04-02] MEDS: FINASTERIDE 5MG TAB PO SCH (21:05)
[2023-04-03 06:26] VITALS: BP 130/60; TEMP 98.1; O2SAT 96
[2023-04-03] MEDS: DICLOFENAC EPOLAMINE 1.3% PATCH TOP SCH ×2 (09:00→20:01)
[2023-04-03] MEDS: TAMSULOSIN 0.4 MG CAP PO SCH (10:51)
[2023-04-03] MEDS: CYANOCOBALAMIN 500 MCG TAB PO SCH (10:51)
[2023-04-03] MEDS: VITAMIN D 1,000 INTERNATIONAL UNITS TABLET PO SCH (10:51)
[2023-04-03] MEDS: PANTOPRAZOLE 40MG TAB (PROTONIX) PO SCH (10:52)
[2023-04-03] MEDS: MIRALAX *UNIT DOSE* 17GM PACKET PO SCH ×2 (10:52→20:02)
[2023-04-03] MEDS: ENOXAPARIN 40MG/0.4ML SYRINGE (J1650 PER 10MG) SC SCH (10:52)
[2023-04-03] MEDS: METAMUCIL (PSYLLIUM) PACKET PO SCH ×2 (10:53→20:02)
[2023-04-03] MEDS: OLANZapine 5 MG TAB PO PRN ×2 (10:55→22:45)
[2023-04-03] MEDS: ATORVASTATIN 20 MG TAB PO SCH (20:02)
[2023-04-03] MEDS: FINASTERIDE 5MG TAB PO SCH (20:02)
[2023-04-03] MEDS: QUEtiapine FUMARATE 50MG TAB PO SCH (20:02)
[2023-04-03] MEDS: RAMELTEON 8 MG TAB (ROZEREM) PO SCH (20:02)
[2023-04-04] MEDS: oxyCODONE 5MG TAB PO PRN (02:23)
[2023-04-04 06:11] VITALS: BP 118/69; TEMP 98.2; O2SAT 98
[2023-04-04] MEDS: MIRALAX *UNIT DOSE* 17GM PACKET PO SCH ×2 (09:16→20:04)
[2023-04-04] MEDS: METAMUCIL (PSYLLIUM) PACKET PO SCH ×2 (09:16→20:04)
[2023-04-04] MEDS: VITAMIN D 1,000 INTERNATIONAL UNITS TABLET PO SCH (09:16)
[2023-04-04] MEDS: TAMSULOSIN 0.4 MG CAP PO SCH (09:16)
[2023-04-04] MEDS: PANTOPRAZOLE 40MG TAB (PROTONIX) PO SCH (09:16)
[2023-04-04] MEDS: CYANOCOBALAMIN 500 MCG TAB PO SCH (09:16)
[2023-04-04] MEDS: DICLOFENAC EPOLAMINE 1.3% PATCH TOP SCH ×2 (09:17→20:05)
[2023-04-04] MEDS: ENOXAPARIN 40MG/0.4ML SYRINGE (J1650 PER 10MG) SC SCH (09:17)
[2023-04-04] MEDS: ATORVASTATIN 20 MG TAB PO SCH (20:04)
[2023-04-04] MEDS: RAMELTEON 8 MG TAB (ROZEREM) PO SCH (20:04)
[2023-04-04] MEDS: OLANZapine 5 MG TAB PO PRN (20:05)
[2023-04-04] MEDS: QUEtiapine FUMARATE 50MG TAB PO SCH (20:05)
[2023-04-04] MEDS: FINASTERIDE 5MG TAB PO SCH (20:09)
[2023-04-05 06:29] VITALS: BP 107/66; TEMP 98.1; O2SAT 97
[2023-04-05] MEDS: ENOXAPARIN 40MG/0.4ML SYRINGE (J1650 PER 10MG) SC SCH (08:49)
[2023-04-05] MEDS: TAMSULOSIN 0.4 MG CAP PO SCH (08:50)
[2023-04-05] MEDS: CYANOCOBALAMIN 500 MCG TAB PO SCH (08:50)
[2023-04-05] MEDS: PANTOPRAZOLE 40MG TAB (PROTONIX) PO SCH (08:50)
[2023-04-05] MEDS: DICLOFENAC EPOLAMINE 1.3% PATCH TOP SCH ×2 (08:50→21:00)
[2023-04-05] MEDS: VITAMIN D 1,000 INTERNATIONAL UNITS TABLET PO SCH (08:51)
[2023-04-05] MEDS: METAMUCIL (PSYLLIUM) PACKET PO SCH ×2 (08:51→19:30)
[2023-04-05] MEDS: MIRALAX *UNIT DOSE* 17GM PACKET PO SCH ×2 (08:51→19:30)
[2023-04-05] MEDS: ACETAMINOPHEN 500 MG TAB PO PRN (14:21)
[2023-04-05] MEDS: QUEtiapine FUMARATE 50MG TAB PO SCH (19:56)
[2023-04-05] MEDS: ATORVASTATIN 20 MG TAB PO SCH (19:56)
[2023-04-05] MEDS: FINASTERIDE 5MG TAB PO SCH (19:56)
[2023-04-05] MEDS: OLANZapine 5 MG TAB PO PRN (19:56)
[2023-04-05] MEDS: RAMELTEON 8 MG TAB (ROZEREM) PO SCH (19:56)
[2023-04-05] MEDS: oxyCODONE 5MG TAB PO PRN (19:57)
[2023-04-06 05:56] VITALS: BP 112/64; TEMP 98.1; O2SAT 99
[2023-04-06] MEDS: MIRALAX *UNIT DOSE* 17GM PACKET PO SCH ×2 (08:30→22:06)
[2023-04-06] MEDS: METAMUCIL (PSYLLIUM) PACKET PO SCH ×2 (08:30→22:06)
[2023-04-06] MEDS: VITAMIN D 1,000 INTERNATIONAL UNITS TABLET PO SCH (08:31)
[2023-04-06] MEDS: CYANOCOBALAMIN 500 MCG TAB PO SCH (08:31)
[2023-04-06] MEDS: PANTOPRAZOLE 40MG TAB (PROTONIX) PO SCH (08:31)
[2023-04-06] MEDS: TAMSULOSIN 0.4 MG CAP PO SCH (08:31)
[2023-04-06] MEDS: DICLOFENAC EPOLAMINE 1.3% PATCH TOP SCH ×2 (08:31→22:05)
[2023-04-06] MEDS: ENOXAPARIN 40MG/0.4ML SYRINGE (J1650 PER 10MG) SC SCH (08:31)
[2023-04-06] MEDS: FINASTERIDE 5MG TAB PO SCH (21:00)
[2023-04-06] MEDS: ATORVASTATIN 20 MG TAB PO SCH (22:06)
[2023-04-06] MEDS: RAMELTEON 8 MG TAB (ROZEREM) PO SCH (22:06)
[2023-04-06] MEDS: QUEtiapine FUMARATE 50MG TAB PO SCH (22:06)
[2023-04-07 05:23] VITALS: BP 107/78; TEMP 98.4; O2SAT 99
[2023-04-07] MEDS: DICLOFENAC EPOLAMINE 1.3% PATCH TOP SCH ×2 (09:00→19:51)
[2023-04-07] MEDS: METAMUCIL (PSYLLIUM) PACKET PO SCH ×2 (09:53→19:51)
[2023-04-07] MEDS: ENOXAPARIN 40MG/0.4ML SYRINGE (J1650 PER 10MG) SC SCH (09:54)
[2023-04-07] MEDS: MIRALAX *UNIT DOSE* 17GM PACKET PO SCH ×2 (09:54→19:51)
[2023-04-07] MEDS: TAMSULOSIN 0.4 MG CAP PO SCH (09:54)
[2023-04-07] MEDS: CYANOCOBALAMIN 500 MCG TAB PO SCH (09:55)
[2023-04-07] MEDS: VITAMIN D 1,000 INTERNATIONAL UNITS TABLET PO SCH (09:55)
[2023-04-07] MEDS: PANTOPRAZOLE 40MG TAB (PROTONIX) PO SCH (09:55)
[2023-04-07] MEDS: QUEtiapine FUMARATE 50MG TAB PO SCH (19:50)
[2023-04-07] MEDS: ATORVASTATIN 20 MG TAB PO SCH (19:50)
[2023-04-07] MEDS: RAMELTEON 8 MG TAB (ROZEREM) PO SCH (19:51)
[2023-04-07] MEDS: FINASTERIDE 5MG TAB PO SCH (19:51)
[2023-04-08 06:00] VITALS: BP 114/62; TEMP 98.2; O2SAT 96
[2023-04-08] MEDS: MIRALAX *UNIT DOSE* 17GM PACKET PO SCH ×2 (08:10→20:47)
[2023-04-08] MEDS: TAMSULOSIN 0.4 MG CAP PO SCH (08:11)
[2023-04-08] MEDS: VITAMIN D 1,000 INTERNATIONAL UNITS TABLET PO SCH (08:11)
[2023-04-08] MEDS: PANTOPRAZOLE 40MG TAB (PROTONIX) PO SCH (08:11)
[2023-04-08] MEDS: CYANOCOBALAMIN 500 MCG TAB PO SCH (08:11)
[2023-04-08] MEDS: METAMUCIL (PSYLLIUM) PACKET PO SCH ×2 (08:11→20:47)
[2023-04-08] MEDS: ENOXAPARIN 40MG/0.4ML SYRINGE (J1650 PER 10MG) SC SCH (08:11)
[2023-04-08] MEDS: DICLOFENAC EPOLAMINE 1.3% PATCH TOP SCH ×2 (08:12→20:48)
[2023-04-08] MEDS: FINASTERIDE 5MG TAB PO SCH (20:48)
[2023-04-08] MEDS: QUEtiapine FUMARATE 50MG TAB PO SCH (20:48)
[2023-04-08] MEDS: ATORVASTATIN 20 MG TAB PO SCH (20:48)
[2023-04-08] MEDS: RAMELTEON 8 MG TAB (ROZEREM) PO SCH (20:48)
[2023-04-09 06:00] VITALS: BP 138/64; TEMP 97.7; O2SAT 93
[2023-04-09] MEDS: MIRALAX *UNIT DOSE* 17GM PACKET PO SCH ×2 (08:39→21:00)
[2023-04-09] MEDS: METAMUCIL (PSYLLIUM) PACKET PO SCH ×2 (08:40→21:00)
[2023-04-09] MEDS: DICLOFENAC EPOLAMINE 1.3% PATCH TOP SCH ×2 (08:40→21:00)
[2023-04-09] MEDS: ENOXAPARIN 40MG/0.4ML SYRINGE (J1650 PER 10MG) SC SCH (08:40)
[2023-04-09] MEDS: TAMSULOSIN 0.4 MG CAP PO SCH (08:41)
[2023-04-09] MEDS: VITAMIN D 1,000 INTERNATIONAL UNITS TABLET PO SCH (08:41)
[2023-04-09] MEDS: CYANOCOBALAMIN 500 MCG TAB PO SCH (08:41)
[2023-04-09] MEDS: PANTOPRAZOLE 40MG TAB (PROTONIX) PO SCH (08:41)
[2023-04-09] MEDS: QUEtiapine FUMARATE 50MG TAB PO SCH (21:00)
[2023-04-09] MEDS: ATORVASTATIN 20 MG TAB PO SCH (21:00)
[2023-04-09] MEDS: FINASTERIDE 5MG TAB PO SCH (21:00)
[2023-04-09] MEDS: RAMELTEON 8 MG TAB (ROZEREM) PO SCH (21:00)
[2023-04-10 05:57] VITALS: BP 157/79; TEMP 98.1; O2SAT 95
[2023-04-10] MEDS: TAMSULOSIN 0.4 MG CAP PO SCH (08:44)
[2023-04-10] MEDS: PANTOPRAZOLE 40MG TAB (PROTONIX) PO SCH (08:45)
[2023-04-10] MEDS: VITAMIN D 1,000 INTERNATIONAL UNITS TABLET PO SCH (08:45)
[2023-04-10] MEDS: CYANOCOBALAMIN 500 MCG TAB PO SCH (08:45)
[2023-04-10] MEDS: MIRALAX *UNIT DOSE* 17GM PACKET PO SCH ×2 (08:51→20:09)
[2023-04-10] MEDS: ENOXAPARIN 40MG/0.4ML SYRINGE (J1650 PER 10MG) SC SCH (08:51)
[2023-04-10] MEDS: METAMUCIL (PSYLLIUM) PACKET PO SCH ×2 (08:51→20:09)
[2023-04-10] MEDS: DICLOFENAC EPOLAMINE 1.3% PATCH TOP SCH ×2 (08:52→20:09)
[2023-04-10] MEDS: QUEtiapine FUMARATE 50MG TAB PO SCH (20:09)
[2023-04-10] MEDS: ATORVASTATIN 20 MG TAB PO SCH (20:09)
[2023-04-10] MEDS: FINASTERIDE 5MG TAB PO SCH (20:09)
[2023-04-10] MEDS: RAMELTEON 8 MG TAB (ROZEREM) PO SCH (20:09)
[2023-04-11] MEDS: OLANZapine 5 MG TAB PO PRN (01:08)
[2023-04-11 05:05] VITALS: BP 163/78; TEMP 98.4; O2SAT 94
[2023-04-11] MEDS: ENOXAPARIN 40MG/0.4ML SYRINGE (J1650 PER 10MG) SC SCH (10:02)
[2023-04-11] MEDS: DICLOFENAC EPOLAMINE 1.3% PATCH TOP SCH ×2 (10:02→20:16)
[2023-04-11] MEDS: VITAMIN D 1,000 INTERNATIONAL UNITS TABLET PO SCH (10:03)
[2023-04-11] MEDS: MIRALAX *UNIT DOSE* 17GM PACKET PO SCH ×2 (10:04→20:13)
[2023-04-11] MEDS: PANTOPRAZOLE 40MG TAB (PROTONIX) PO SCH (10:04)
[2023-04-11] MEDS: METAMUCIL (PSYLLIUM) PACKET PO SCH ×2 (10:04→20:13)
[2023-04-11] MEDS: TAMSULOSIN 0.4 MG CAP PO SCH (10:04)
[2023-04-11] MEDS: CYANOCOBALAMIN 500 MCG TAB PO SCH (10:05)
[2023-04-11] MEDS: RAMELTEON 8 MG TAB (ROZEREM) PO SCH (20:13)
[2023-04-11] MEDS: FINASTERIDE 5MG TAB PO SCH (20:13)
[2023-04-11] MEDS: QUEtiapine FUMARATE 50MG TAB PO SCH (20:13)
[2023-04-11] MEDS: ATORVASTATIN 20 MG TAB PO SCH (20:13)
[2023-04-12 06:59] VITALS: BP 131/70; TEMP 98.2; O2SAT 96
[2023-04-12] MEDS: TAMSULOSIN 0.4 MG CAP PO SCH (10:01)
[2023-04-12] MEDS: VITAMIN D 1,000 INTERNATIONAL UNITS TABLET PO SCH (10:01)
[2023-04-12] MEDS: ENOXAPARIN 40MG/0.4ML SYRINGE (J1650 PER 10MG) SC SCH (10:01)
[2023-04-12] MEDS: PANTOPRAZOLE 40MG TAB (PROTONIX) PO SCH (10:01)
[2023-04-12] MEDS: DICLOFENAC EPOLAMINE 1.3% PATCH TOP SCH ×2 (10:02→20:05)
[2023-04-12] MEDS: MIRALAX *UNIT DOSE* 17GM PACKET PO SCH ×2 (10:02→20:05)
[2023-04-12] MEDS: CYANOCOBALAMIN 500 MCG TAB PO SCH (10:02)
[2023-04-12] MEDS: METAMUCIL (PSYLLIUM) PACKET PO SCH ×2 (10:02→20:05)
[2023-04-12] MEDS: OLANZapine 5 MG TAB PO PRN (20:06)
[2023-04-12] MEDS: QUEtiapine FUMARATE 50MG TAB PO SCH (20:06)
[2023-04-12] MEDS: FINASTERIDE 5MG TAB PO SCH (20:06)
[2023-04-12] MEDS: ATORVASTATIN 20 MG TAB PO SCH (20:06)
[2023-04-12] MEDS: RAMELTEON 8 MG TAB (ROZEREM) PO SCH (20:06)
[2023-04-13 05:45] VITALS: BP 130/72; TEMP 98.6; O2SAT 97
[2023-04-13] MEDS: MIRALAX *UNIT DOSE* 17GM PACKET PO SCH ×2 (09:00→20:52)
[2023-04-13] MEDS: METAMUCIL (PSYLLIUM) PACKET PO SCH ×2 (09:00→20:52)
[2023-04-13] MEDS: VITAMIN D 1,000 INTERNATIONAL UNITS TABLET PO SCH (09:36)
[2023-04-13] MEDS: TAMSULOSIN 0.4 MG CAP PO SCH (09:36)
[2023-04-13] MEDS: CYANOCOBALAMIN 500 MCG TAB PO SCH (09:36)
[2023-04-13] MEDS: PANTOPRAZOLE 40MG TAB (PROTONIX) PO SCH (09:36)
[2023-04-13] MEDS: DICLOFENAC EPOLAMINE 1.3% PATCH TOP SCH ×2 (09:37→20:52)
[2023-04-13] MEDS: ENOXAPARIN 40MG/0.4ML SYRINGE (J1650 PER 10MG) SC SCH (09:37)
[2023-04-13] MEDS: QUEtiapine FUMARATE 50MG TAB PO SCH (20:53)
[2023-04-13] MEDS: OLANZapine 5 MG TAB PO PRN (20:53)
[2023-04-13] MEDS: ATORVASTATIN 20 MG TAB PO SCH (20:53)
[2023-04-13] MEDS: RAMELTEON 8 MG TAB (ROZEREM) PO SCH (20:53)
[2023-04-13] MEDS: FINASTERIDE 5MG TAB PO SCH (20:53)
[2023-04-14 06:06] VITALS: BP 144/77; TEMP 97.9; O2SAT 94
[2023-04-14] MEDS: TAMSULOSIN 0.4 MG CAP PO SCH (08:23)
[2023-04-14] MEDS: METAMUCIL (PSYLLIUM) PACKET PO SCH ×2 (08:23→19:06)
[2023-04-14] MEDS: CYANOCOBALAMIN 500 MCG TAB PO SCH (08:23)
[2023-04-14] MEDS: PANTOPRAZOLE 40MG TAB (PROTONIX) PO SCH (08:23)
[2023-04-14] MEDS: VITAMIN D 1,000 INTERNATIONAL UNITS TABLET PO SCH (08:23)
[2023-04-14] MEDS: MIRALAX *UNIT DOSE* 17GM PACKET PO SCH ×2 (08:23→19:07)
[2023-04-14] MEDS: DICLOFENAC EPOLAMINE 1.3% PATCH TOP SCH ×2 (08:23→19:06)
[2023-04-14] MEDS: ENOXAPARIN 40MG/0.4ML SYRINGE (J1650 PER 10MG) SC SCH (08:24)
[2023-04-14] MEDS ORDERED: OXYC-517 PO (16:10)
[2023-04-14] MEDS: ATORVASTATIN 20 MG TAB PO SCH (19:06)
[2023-04-14] MEDS: QUEtiapine FUMARATE 50MG TAB PO SCH (19:06)
[2023-04-14] MEDS: RAMELTEON 8 MG TAB (ROZEREM) PO SCH (19:06)
[2023-04-14] MEDS: FINASTERIDE 5MG TAB PO SCH (19:06)
[2023-04-15 05:38] VITALS: BP 134/66; TEMP 98.1; O2SAT 99
[2023-04-15] MEDS: ENOXAPARIN 40MG/0.4ML SYRINGE (J1650 PER 10MG) SC SCH (09:17)
[2023-04-15] MEDS: CYANOCOBALAMIN 500 MCG TAB PO SCH (09:17)
[2023-04-15] MEDS: VITAMIN D 1,000 INTERNATIONAL UNITS TABLET PO SCH (09:17)
[2023-04-15] MEDS: MIRALAX *UNIT DOSE* 17GM PACKET PO SCH ×2 (09:17→19:52)
[2023-04-15] MEDS: METAMUCIL (PSYLLIUM) PACKET PO SCH ×2 (09:17→19:53)
[2023-04-15] MEDS: TAMSULOSIN 0.4 MG CAP PO SCH (09:17)
[2023-04-15] MEDS: PANTOPRAZOLE 40MG TAB (PROTONIX) PO SCH (09:17)
[2023-04-15] MEDS: DICLOFENAC EPOLAMINE 1.3% PATCH TOP SCH ×2 (09:18→19:53)
[2023-04-15] MEDS: RAMELTEON 8 MG TAB (ROZEREM) PO SCH (19:53)
[2023-04-15] MEDS: ATORVASTATIN 20 MG TAB PO SCH (19:53)
[2023-04-15] MEDS: QUEtiapine FUMARATE 50MG TAB PO SCH (19:53)
[2023-04-15] MEDS: FINASTERIDE 5MG TAB PO SCH (19:53)
[2023-04-16 06:00] VITALS: BP 131/61; TEMP 98.6; O2SAT 96
[2023-04-16] MEDS: PANTOPRAZOLE 40MG TAB (PROTONIX) PO SCH (08:53)
[2023-04-16] MEDS: CYANOCOBALAMIN 500 MCG TAB PO SCH (08:53)
[2023-04-16] MEDS: METAMUCIL (PSYLLIUM) PACKET PO SCH ×2 (08:53→19:37)
[2023-04-16] MEDS: TAMSULOSIN 0.4 MG CAP PO SCH (08:53)
[2023-04-16] MEDS: MIRALAX *UNIT DOSE* 17GM PACKET PO SCH ×2 (08:53→19:37)
[2023-04-16] MEDS: ENOXAPARIN 40MG/0.4ML SYRINGE (J1650 PER 10MG) SC SCH (08:54)
[2023-04-16] MEDS: DICLOFENAC EPOLAMINE 1.3% PATCH TOP SCH ×2 (08:54→19:39)
[2023-04-16] MEDS: VITAMIN D 1,000 INTERNATIONAL UNITS TABLET PO SCH (08:54)
[2023-04-16] MEDS: ATORVASTATIN 20 MG TAB PO SCH (19:37)
[2023-04-16] MEDS: FINASTERIDE 5MG TAB PO SCH (19:37)
[2023-04-16] MEDS: RAMELTEON 8 MG TAB (ROZEREM) PO SCH (19:37)
[2023-04-16] MEDS: QUEtiapine FUMARATE 50MG TAB PO SCH (19:37)
[2023-04-17 06:00] VITALS: BP 134/64; TEMP 98.1; O2SAT 94
[2023-04-17] MEDS: METAMUCIL (PSYLLIUM) PACKET PO SCH ×2 (08:16→19:44)
[2023-04-17] MEDS: DICLOFENAC EPOLAMINE 1.3% PATCH TOP SCH ×2 (08:16→19:45)
[2023-04-17] MEDS: VITAMIN D 1,000 INTERNATIONAL UNITS TABLET PO SCH (08:19)
[2023-04-17] MEDS: PANTOPRAZOLE 40MG TAB (PROTONIX) PO SCH (08:19)
[2023-04-17] MEDS: TAMSULOSIN 0.4 MG CAP PO SCH (08:19)
[2023-04-17] MEDS: MIRALAX *UNIT DOSE* 17GM PACKET PO SCH ×2 (08:19→19:44)
[2023-04-17] MEDS: ENOXAPARIN 40MG/0.4ML SYRINGE (J1650 PER 10MG) SC SCH (08:19)
[2023-04-17] MEDS: CYANOCOBALAMIN 500 MCG TAB PO SCH (08:19)
[2023-04-17] MEDS: RAMELTEON 8 MG TAB (ROZEREM) PO SCH (19:45)
[2023-04-17] MEDS: ATORVASTATIN 20 MG TAB PO SCH (19:45)
[2023-04-17] MEDS: QUEtiapine FUMARATE 50MG TAB PO SCH (19:45)
[2023-04-17] MEDS: FINASTERIDE 5MG TAB PO SCH (19:45)
[2023-04-18 06:00] VITALS: BP 131/63; TEMP 97.7; O2SAT 94
[2023-04-18] MEDS: MIRALAX *UNIT DOSE* 17GM PACKET PO SCH ×3 (08:43→21:24)
[2023-04-18] MEDS: DICLOFENAC EPOLAMINE 1.3% PATCH TOP SCH ×2 (08:44→21:24)
[2023-04-18] MEDS: METAMUCIL (PSYLLIUM) PACKET PO SCH ×3 (08:44→21:25)
[2023-04-18] MEDS: PANTOPRAZOLE 40MG TAB (PROTONIX) PO SCH (08:45)
[2023-04-18] MEDS: CYANOCOBALAMIN 500 MCG TAB PO SCH (08:45)
[2023-04-18] MEDS: TAMSULOSIN 0.4 MG CAP PO SCH (08:45)
[2023-04-18] MEDS: VITAMIN D 1,000 INTERNATIONAL UNITS TABLET PO SCH (08:45)
[2023-04-18] MEDS: ENOXAPARIN 40MG/0.4ML SYRINGE (J1650 PER 10MG) SC SCH ×2 (08:46→09:00)
[2023-04-18] MEDS: FINASTERIDE 5MG TAB PO SCH (21:24)
[2023-04-18] MEDS: QUEtiapine FUMARATE 50MG TAB PO SCH (21:24)
[2023-04-18] MEDS: ACETAMINOPHEN 500 MG TAB PO PRN (21:24)
[2023-04-18] MEDS: ATORVASTATIN 20 MG TAB PO SCH (21:24)
[2023-04-18] MEDS: RAMELTEON 8 MG TAB (ROZEREM) PO SCH (21:24)
[2023-04-19 06:00] VITALS: BP 127/72; TEMP 98.2; O2SAT 97
[2023-04-19] MEDS: METAMUCIL (PSYLLIUM) PACKET PO SCH ×2 (09:07→20:23)
[2023-04-19] MEDS: MIRALAX *UNIT DOSE* 17GM PACKET PO SCH ×2 (09:07→20:23)
[2023-04-19] MEDS: DICLOFENAC EPOLAMINE 1.3% PATCH TOP SCH ×3 (09:07→20:27)
[2023-04-19] MEDS: CYANOCOBALAMIN 500 MCG TAB PO SCH (09:08)
[2023-04-19] MEDS: ENOXAPARIN 40MG/0.4ML SYRINGE (J1650 PER 10MG) SC SCH (09:08)
[2023-04-19] MEDS: TAMSULOSIN 0.4 MG CAP PO SCH (09:08)
[2023-04-19] MEDS: VITAMIN D 1,000 INTERNATIONAL UNITS TABLET PO SCH (09:08)
[2023-04-19] MEDS: PANTOPRAZOLE 40MG TAB (PROTONIX) PO SCH (09:09)
[2023-04-19] MEDS: ATORVASTATIN 20 MG TAB PO SCH (20:24)
[2023-04-19] MEDS: FINASTERIDE 5MG TAB PO SCH (20:24)
[2023-04-19] MEDS: RAMELTEON 8 MG TAB (ROZEREM) PO SCH (20:24)
[2023-04-19] MEDS: QUEtiapine FUMARATE 50MG TAB PO SCH (20:24)
[2023-04-20 05:43] VITALS: BP 137/63; TEMP 98; O2SAT 99
[2023-04-20] MEDS: MIRALAX *UNIT DOSE* 17GM PACKET PO SCH ×2 (09:26→20:17)
[2023-04-20] MEDS: METAMUCIL (PSYLLIUM) PACKET PO SCH ×2 (09:26→20:17)
[2023-04-20] MEDS: DICLOFENAC EPOLAMINE 1.3% PATCH TOP SCH ×2 (09:26→20:17)
[2023-04-20] MEDS: ENOXAPARIN 40MG/0.4ML SYRINGE (J1650 PER 10MG) SC SCH (09:26)
[2023-04-20] MEDS: VITAMIN D 1,000 INTERNATIONAL UNITS TABLET PO SCH (09:26)
[2023-04-20] MEDS: CYANOCOBALAMIN 500 MCG TAB PO SCH (09:27)
[2023-04-20] MEDS: PANTOPRAZOLE 40MG TAB (PROTONIX) PO SCH (09:27)
[2023-04-20] MEDS: TAMSULOSIN 0.4 MG CAP PO SCH (09:27)
[2023-04-20] MEDS: FINASTERIDE 5MG TAB PO SCH (20:17)
[2023-04-20] MEDS: RAMELTEON 8 MG TAB (ROZEREM) PO SCH (20:17)
[2023-04-20] MEDS: QUEtiapine FUMARATE 50MG TAB PO SCH (20:17)
[2023-04-20] MEDS: ATORVASTATIN 20 MG TAB PO SCH (20:17)
[2023-04-21 06:00] VITALS: BP 117/51; TEMP 98.2; O2SAT 97
[2023-04-21] MEDS: MIRALAX *UNIT DOSE* 17GM PACKET PO SCH ×2 (09:00→21:23)
[2023-04-21] MEDS: ENOXAPARIN 40MG/0.4ML SYRINGE (J1650 PER 10MG) SC SCH (09:44)
[2023-04-21] MEDS: METAMUCIL (PSYLLIUM) PACKET PO SCH ×2 (09:44→21:23)
[2023-04-21] MEDS: PANTOPRAZOLE 40MG TAB (PROTONIX) PO SCH (09:45)
[2023-04-21] MEDS: TAMSULOSIN 0.4 MG CAP PO SCH (09:45)
[2023-04-21] MEDS: DICLOFENAC EPOLAMINE 1.3% PATCH TOP SCH ×2 (09:45→21:24)
[2023-04-21] MEDS: VITAMIN D 1,000 INTERNATIONAL UNITS TABLET PO SCH (09:45)
[2023-04-21] MEDS: CYANOCOBALAMIN 500 MCG TAB PO SCH (09:45)
[2023-04-21] MEDS: QUEtiapine FUMARATE 50MG TAB PO SCH (21:24)
[2023-04-21] MEDS: ATORVASTATIN 20 MG TAB PO SCH (21:24)
[2023-04-21] MEDS: FINASTERIDE 5MG TAB PO SCH (21:24)
[2023-04-21] MEDS: RAMELTEON 8 MG TAB (ROZEREM) PO SCH (21:24)
[2023-04-22] MEDS: ENOXAPARIN 40MG/0.4ML SYRINGE (J1650 PER 10MG) SC SCH (09:15)
[2023-04-22] MEDS: TAMSULOSIN 0.4 MG CAP PO SCH (09:15)
[2023-04-22] MEDS: METAMUCIL (PSYLLIUM) PACKET PO SCH ×2 (09:15→20:40)
[2023-04-22] MEDS: MIRALAX *UNIT DOSE* 17GM PACKET PO SCH ×2 (09:15→20:40)
[2023-04-22] MEDS: CYANOCOBALAMIN 500 MCG TAB PO SCH (09:16)
[2023-04-22] MEDS: VITAMIN D 1,000 INTERNATIONAL UNITS TABLET PO SCH (09:16)
[2023-04-22] MEDS: PANTOPRAZOLE 40MG TAB (PROTONIX) PO SCH (09:16)
[2023-04-22] MEDS: DICLOFENAC EPOLAMINE 1.3% PATCH TOP SCH ×2 (09:16→20:41)
[2023-04-22] MEDS: QUEtiapine FUMARATE 50MG TAB PO SCH (20:41)
[2023-04-22] MEDS: RAMELTEON 8 MG TAB (ROZEREM) PO SCH (20:41)
[2023-04-22] MEDS: ATORVASTATIN 20 MG TAB PO SCH (20:41)
[2023-04-22] MEDS: FINASTERIDE 5MG TAB PO SCH (20:41)
[2023-04-23 06:50] VITALS: BP 108/56; O2SAT 96
[2023-04-23] MEDS: CYANOCOBALAMIN 500 MCG TAB PO SCH (10:04)
[2023-04-23] MEDS: TAMSULOSIN 0.4 MG CAP PO SCH (10:04)
[2023-04-23] MEDS: PANTOPRAZOLE 40MG TAB (PROTONIX) PO SCH (10:04)
[2023-04-23] MEDS: VITAMIN D 1,000 INTERNATIONAL UNITS TABLET PO SCH (10:04)
[2023-04-23] MEDS: METAMUCIL (PSYLLIUM) PACKET PO SCH ×2 (10:05→20:02)
[2023-04-23] MEDS: MIRALAX *UNIT DOSE* 17GM PACKET PO SCH ×2 (10:05→20:02)
[2023-04-23] MEDS: DICLOFENAC EPOLAMINE 1.3% PATCH TOP SCH ×2 (10:05→20:02)
[2023-04-23] MEDS: ENOXAPARIN 40MG/0.4ML SYRINGE (J1650 PER 10MG) SC SCH (10:06)
[2023-04-23] MEDS: QUEtiapine FUMARATE 50MG TAB PO SCH (20:01)
[2023-04-23] MEDS: RAMELTEON 8 MG TAB (ROZEREM) PO SCH (20:01)
[2023-04-23] MEDS: FINASTERIDE 5MG TAB PO SCH (20:02)
[2023-04-23] MEDS: ATORVASTATIN 20 MG TAB PO SCH (20:02)
[2023-04-24 05:46] VITALS: BP 116/70; TEMP 97.5; O2SAT 95
[2023-04-24] MEDS: MIRALAX *UNIT DOSE* 17GM PACKET PO SCH ×2 (10:39→20:34)
[2023-04-24] MEDS: CYANOCOBALAMIN 500 MCG TAB PO SCH (10:39)
[2023-04-24] MEDS: METAMUCIL (PSYLLIUM) PACKET PO SCH ×2 (10:39→20:33)
[2023-04-24] MEDS: PANTOPRAZOLE 40MG TAB (PROTONIX) PO SCH (10:40)
[2023-04-24] MEDS: ENOXAPARIN 40MG/0.4ML SYRINGE (J1650 PER 10MG) SC SCH (10:40)
[2023-04-24] MEDS: TAMSULOSIN 0.4 MG CAP PO SCH (10:40)
[2023-04-24] MEDS: VITAMIN D 1,000 INTERNATIONAL UNITS TABLET PO SCH (10:40)
[2023-04-24] MEDS: DICLOFENAC EPOLAMINE 1.3% PATCH TOP SCH ×3 (10:41→20:40)
[2023-04-24] MEDS: QUEtiapine FUMARATE 50MG TAB PO SCH (20:33)
[2023-04-24] MEDS: ATORVASTATIN 20 MG TAB PO SCH (20:33)
[2023-04-24] MEDS: RAMELTEON 8 MG TAB (ROZEREM) PO SCH (20:34)
[2023-04-24] MEDS: FINASTERIDE 5MG TAB PO SCH (20:34)
[2023-04-25 05:49] VITALS: BP 116/53; TEMP 98.8; O2SAT 97
[2023-04-25] MEDS: METAMUCIL (PSYLLIUM) PACKET PO SCH ×2 (09:55→20:11)
[2023-04-25] MEDS: ENOXAPARIN 40MG/0.4ML SYRINGE (J1650 PER 10MG) SC SCH (09:55)
[2023-04-25] MEDS: MIRALAX *UNIT DOSE* 17GM PACKET PO SCH ×2 (09:55→20:11)
[2023-04-25] MEDS: CYANOCOBALAMIN 500 MCG TAB PO SCH (09:55)
[2023-04-25] MEDS: TAMSULOSIN 0.4 MG CAP PO SCH (09:55)
[2023-04-25] MEDS: VITAMIN D 1,000 INTERNATIONAL UNITS TABLET PO SCH (09:56)
[2023-04-25] MEDS: DICLOFENAC EPOLAMINE 1.3% PATCH TOP SCH ×2 (09:56→20:12)
[2023-04-25] MEDS: PANTOPRAZOLE 40MG TAB (PROTONIX) PO SCH (09:56)
[2023-04-25] MEDS: ATORVASTATIN 20 MG TAB PO SCH (20:11)
[2023-04-25] MEDS: RAMELTEON 8 MG TAB (ROZEREM) PO SCH (20:11)
[2023-04-25] MEDS: QUEtiapine FUMARATE 50MG TAB PO SCH (20:11)
[2023-04-25] MEDS: FINASTERIDE 5MG TAB PO SCH (20:11)
[2023-04-26] MEDS: MIRALAX *UNIT DOSE* 17GM PACKET PO SCH ×2 (09:10→20:37)
[2023-04-26] MEDS: VITAMIN D 1,000 INTERNATIONAL UNITS TABLET PO SCH (09:10)
[2023-04-26] MEDS: CYANOCOBALAMIN 500 MCG TAB PO SCH (09:10)
[2023-04-26] MEDS: PANTOPRAZOLE 40MG TAB (PROTONIX) PO SCH (09:10)
[2023-04-26] MEDS: ENOXAPARIN 40MG/0.4ML SYRINGE (J1650 PER 10MG) SC SCH (09:10)
[2023-04-26] MEDS: DICLOFENAC EPOLAMINE 1.3% PATCH TOP SCH ×2 (09:10→20:38)
[2023-04-26] MEDS: METAMUCIL (PSYLLIUM) PACKET PO SCH ×2 (09:10→20:37)
[2023-04-26] MEDS: TAMSULOSIN 0.4 MG CAP PO SCH (09:10)
[2023-04-26] MEDS: ATORVASTATIN 20 MG TAB PO SCH (20:38)
[2023-04-26] MEDS: RAMELTEON 8 MG TAB (ROZEREM) PO SCH (20:38)
[2023-04-26] MEDS: QUEtiapine FUMARATE 50MG TAB PO SCH (20:38)
[2023-04-26] MEDS: FINASTERIDE 5MG TAB PO SCH (20:38)
[2023-04-27 06:00] VITALS: BP 135/71; TEMP 98.6; O2SAT 95
[2023-04-27] MEDS: METAMUCIL (PSYLLIUM) PACKET PO SCH ×2 (10:11→21:36)
[2023-04-27] MEDS: ENOXAPARIN 40MG/0.4ML SYRINGE (J1650 PER 10MG) SC SCH (10:11)
[2023-04-27] MEDS: MIRALAX *UNIT DOSE* 17GM PACKET PO SCH ×2 (10:11→21:36)
[2023-04-27] MEDS: DICLOFENAC EPOLAMINE 1.3% PATCH TOP SCH ×2 (10:12→21:36)
[2023-04-27] MEDS: PANTOPRAZOLE 40MG TAB (PROTONIX) PO SCH (10:12)
[2023-04-27] MEDS: VITAMIN D 1,000 INTERNATIONAL UNITS TABLET PO SCH (10:12)
[2023-04-27] MEDS: CYANOCOBALAMIN 500 MCG TAB PO SCH (10:12)
[2023-04-27] MEDS: TAMSULOSIN 0.4 MG CAP PO SCH (10:13)
[2023-04-27] MEDS: QUEtiapine FUMARATE 50MG TAB PO SCH (21:36)
[2023-04-27] MEDS: FINASTERIDE 5MG TAB PO SCH (21:36)
[2023-04-27] MEDS: RAMELTEON 8 MG TAB (ROZEREM) PO SCH (21:36)
[2023-04-27] MEDS: ATORVASTATIN 20 MG TAB PO SCH (21:36)
[2023-04-28 04:53] VITALS: BP 135/65; TEMP 98.8; O2SAT 96
[2023-04-28] MEDS: METAMUCIL (PSYLLIUM) PACKET PO SCH ×2 (09:59→20:43)
[2023-04-28] MEDS: VITAMIN D 1,000 INTERNATIONAL UNITS TABLET PO SCH (09:59)
[2023-04-28] MEDS: MIRALAX *UNIT DOSE* 17GM PACKET PO SCH ×2 (09:59→20:43)
[2023-04-28] MEDS: ENOXAPARIN 40MG/0.4ML SYRINGE (J1650 PER 10MG) SC SCH (09:59)
[2023-04-28] MEDS: DICLOFENAC EPOLAMINE 1.3% PATCH TOP SCH ×2 (10:00→20:43)
[2023-04-28] MEDS: TAMSULOSIN 0.4 MG CAP PO SCH (10:00)
[2023-04-28] MEDS: CYANOCOBALAMIN 500 MCG TAB PO SCH (10:00)
[2023-04-28] MEDS: PANTOPRAZOLE 40MG TAB (PROTONIX) PO SCH (10:00)
[2023-04-28] MEDS: QUEtiapine FUMARATE 50MG TAB PO SCH (20:44)
[2023-04-28] MEDS: FINASTERIDE 5MG TAB PO SCH (20:44)
[2023-04-28] MEDS: RAMELTEON 8 MG TAB (ROZEREM) PO SCH (20:44)
[2023-04-28] MEDS: ATORVASTATIN 20 MG TAB PO SCH (20:44)
[2023-04-29 04:45] VITALS: BP 131/63; TEMP 97.9; O2SAT 97
[2023-04-29] MEDS: TAMSULOSIN 0.4 MG CAP PO SCH (10:17)
[2023-04-29] MEDS: ENOXAPARIN 40MG/0.4ML SYRINGE (J1650 PER 10MG) SC SCH (10:17)
[2023-04-29] MEDS: VITAMIN D 1,000 INTERNATIONAL UNITS TABLET PO SCH (10:17)
[2023-04-29] MEDS: MIRALAX *UNIT DOSE* 17GM PACKET PO SCH ×2 (10:18→20:08)
[2023-04-29] MEDS: DICLOFENAC EPOLAMINE 1.3% PATCH TOP SCH ×2 (10:18→20:08)
[2023-04-29] MEDS: PANTOPRAZOLE 40MG TAB (PROTONIX) PO SCH (10:18)
[2023-04-29] MEDS: METAMUCIL (PSYLLIUM) PACKET PO SCH ×2 (10:18→20:08)
[2023-04-29] MEDS: CYANOCOBALAMIN 500 MCG TAB PO SCH (10:18)
[2023-04-29] MEDS ORDERED: ANALGESIC BALM CRM 3OZ TOP PRN (10:30)
[2023-04-29] MEDS: RAMELTEON 8 MG TAB (ROZEREM) PO SCH (20:07)
[2023-04-29] MEDS: ATORVASTATIN 20 MG TAB PO SCH (20:07)
[2023-04-29] MEDS: FINASTERIDE 5MG TAB PO SCH (20:07)
[2023-04-29] MEDS: QUEtiapine FUMARATE 50MG TAB PO SCH (20:08)
[2023-04-29] MEDS: OLANZapine 5 MG TAB PO PRN (20:08)
[2023-04-30 05:25] VITALS: BP 131/77; TEMP 97.9; O2SAT 96
[2023-04-30] MEDS: METAMUCIL (PSYLLIUM) PACKET PO SCH ×2 (09:39→21:10)
[2023-04-30] MEDS: ENOXAPARIN 40MG/0.4ML SYRINGE (J1650 PER 10MG) SC SCH (09:39)
[2023-04-30] MEDS: MIRALAX *UNIT DOSE* 17GM PACKET PO SCH ×2 (09:39→21:10)
[2023-04-30] MEDS: VITAMIN D 1,000 INTERNATIONAL UNITS TABLET PO SCH (09:39)
[2023-04-30] MEDS: CYANOCOBALAMIN 500 MCG TAB PO SCH (09:40)
[2023-04-30] MEDS: PANTOPRAZOLE 40MG TAB (PROTONIX) PO SCH (09:40)
[2023-04-30] MEDS: TAMSULOSIN 0.4 MG CAP PO SCH (09:40)
[2023-04-30] MEDS: DICLOFENAC EPOLAMINE 1.3% PATCH TOP SCH ×2 (09:41→21:00)
[2023-04-30] MEDS ORDERED: QUET50TA4 PO (11:21)
[2023-04-30] MEDS ORDERED: MUSCCRE9 TOP (11:21)
[2023-04-30] MEDS ORDERED: DICL1PAT6 TOP (11:21)
[2023-04-30] MEDS ORDERED: HYDR-3363 PO (11:21)
[2023-04-30] MEDS ORDERED: FINA5TAB2 PO (11:21)
[2023-04-30] MEDS ORDERED: OLAN1TAB16 PO (11:21)
[2023-04-30] MEDS: FINASTERIDE 5MG TAB PO SCH (21:10)
[2023-04-30] MEDS: QUEtiapine FUMARATE 50MG TAB PO SCH (21:10)
[2023-04-30] MEDS: ATORVASTATIN 20 MG TAB PO SCH (21:10)
[2023-04-30] MEDS: RAMELTEON 8 MG TAB (ROZEREM) PO SCH (21:10)
[2023-05-01 06:00] VITALS: BP 115/51; TEMP 97.9; O2SAT 97
[2023-05-01] MEDS ORDERED: ASPI81CH33 PO (08:31)
[2023-05-01] MEDS: MIRALAX *UNIT DOSE* 17GM PACKET PO SCH (09:00)
[2023-05-01] MEDS: DICLOFENAC EPOLAMINE 1.3% PATCH TOP SCH (09:00)
[2023-05-01] MEDS: CYANOCOBALAMIN 500 MCG TAB PO SCH (09:05)
[2023-05-01] MEDS: ENOXAPARIN 40MG/0.4ML SYRINGE (J1650 PER 10MG) SC SCH (09:05)
[2023-05-01] MEDS: PANTOPRAZOLE 40MG TAB (PROTONIX) PO SCH (09:05)
[2023-05-01] MEDS: VITAMIN D 1,000 INTERNATIONAL UNITS TABLET PO SCH (09:05)
[2023-05-01] MEDS: METAMUCIL (PSYLLIUM) PACKET PO SCH (09:05)
[2023-05-01] MEDS: TAMSULOSIN 0.4 MG CAP PO SCH (09:06)
== END 2023-05-01 10:55 | disposition home or self-care (01) | DRG 71 ==
LOC: EDBD 09:59 → M ED 09:59 → M ED INP 10:00 → ENRESERV 20:02 → M MSPAV 22:05 → OBSVTOIN 03-12 12:42 → M MSPAV 03-16 13:57
PROVIDERS: ADMIT Student in an Organized Health Care Education/Training Program; ATTEND Internal Medicine
DX: G93.41 Metabolic encephalopathy (principal); M62.82 Rhabdomyolysis; N39.0 Urinary tract infection, site not specified; K59.00 Constipation, unspecified; I10 Essential (primary) hypertension; F01.50 Vascular dementia, unspecified severity, without behavioral disturbance, psychotic disturbance, mood disturbance, and anxiety; I27.20 Pulmonary hypertension, unspecified; R29.6 Repeated falls; G30.9 Alzheimer's disease, unspecified; F02.80 Dementia in other diseases classified elsewhere, unspecified severity, without behavioral disturbance, psychotic disturbance, mood disturbance, and anxiety; F41.9 Anxiety disorder, unspecified; F32.A Depression, unspecified; N40.0 Benign prostatic hyperplasia without lower urinary tract symptoms; Z86.73 Personal history of transient ischemic attack (TIA), and cerebral infarction without residual deficits; Z79.82 Long term (current) use of aspirin; Z79.899 Other long term (current) drug therapy; E78.5 Hyperlipidemia, unspecified; M19.90 Unspecified osteoarthritis, unspecified site; K57.90 Diverticulosis of intestine, part unspecified, without perforation or abscess without bleeding; Z66 Do not resuscitate

== ENCOUNTER → 2023-12-03 | Outpatient (CLI) | payer MEDICARE, OTHER ==
[~2023-12-03] MED LIST changes: +ASPI81CH33 PO; +ATOR40TA75 PO; +B-12100010 PO; +CALC500T52 PO; +CHOL125C5 PO; +DICL1PAT6 TOP; +FINA5TAB2 PO; +FLOM0.4C39 PO; +HYDR-3363 PO; +MUSCCRE9 TOP; +OLAN1TAB16 PO; +OLAN1TAB20 PO; +OXYC-517 PO; +QUET50TA4 PO; +ROZE8TAB16 PO
== END ==
LOC: M PLARAD 14:34
PROVIDERS: ATTEND Internal Medicine Pulmonary Disease
DX: R91.8 Other nonspecific abnormal finding of lung field (principal)
CPT/HCPCS: 78815; A9552

== ENCOUNTER → 2023-12-13 | Outpatient (CLI) | payer MEDICARE, OTHER | LOC: M RAD 15:16 | PROVIDERS: ATTEND Internal Medicine Pulmonary Disease | DX: R91.8 Other nonspecific abnormal finding of lung field (principal); J47.9 Bronchiectasis, uncomplicated; M17.12 Unilateral primary osteoarthritis, left knee; M25.462 Effusion, left knee ==

== ENCOUNTER → 2023-12-13 | Outpatient (CLI) | payer MEDICARE, OTHER | LOC: M RAD 17:09 | PROVIDERS: ATTEND Physician Assistant | DX: M17.12 Unilateral primary osteoarthritis, left knee (principal); M25.462 Effusion, left knee ==

== ENCOUNTER 2024-01-02 07:32 | Day surgery (SDC) | payer MEDICARE, OTHER ==
[~2024-01-02] VITALS: Ht 172.7 cm; Wt 81.5 kg
[~2024-01-02 07:32] MED LIST changes: +ALBUTEROL SULFATE 2.5MG/0.5ML INH NEB SOLN INH ONE; +AMLO1TAB24 PO; +LIDOCAINE PRES-FREE 2% 10ML AMP INH ONE; +METH85CR6 TOP; -MUSCCRE9 TOP; +MYRB25TA PO; +SERT25TA21 PO
[2024-01-02] MEDS ORDERED: LR 1,000 ML IV SCH ×2 (07:50→10:35)
[2024-01-02] MEDS ORDERED: fentaNYL 100 MCG/2 ML INJECTION As Ordered ONE (08:02)
[2024-01-02] MEDS ORDERED: ROCURONIUM BROMIDE 50MG/5ML VIAL As Ordered ONE (08:03)
[2024-01-02] MEDS ORDERED: LIDOCAINE 2% 100MG/5ML SDV (FOR ANES.) As Ordered ONE (08:03)
[2024-01-02] MEDS ORDERED: SUGAMMADEX SODIUM 500 MG/5 ML VIAL (BRIDION) As Ordered ONE (10:02)
[2024-01-02] MEDS ORDERED: ONDANSETRON 4MG 2ML VIAL As Ordered ONE (10:02)
[2024-01-02] MEDS ORDERED: propofoL 200 MG/20 ML VIAL As Ordered ONE (10:02)
[2024-01-02] MEDS: EPINEPHrine 1MG/10ML SYRINGE 1.5IN As Ordered ONE (10:08)
[2024-01-02] MEDS: CETACAINE SPRAY 5GM As Ordered ONE (10:08)
[2024-01-02] MEDS ORDERED: PHENYLephrine 500MCG 5ML (100MCG/ML) SYRINGE As Ordered ONE (10:16)
[2024-01-02] MEDS ORDERED: HYDROMORPHONE HCL 0.5 MG/ 0.5 ML SYRINGE IV PRN (10:35)
[2024-01-02] MEDS ORDERED: oxyCODONE 5MG TAB PO PRN (10:35)
[2024-01-02] MEDS ORDERED: ONDANSETRON 4MG 2ML VIAL IV PRN (10:35)
[2024-01-02] MEDS ORDERED: fentaNYL 100 MCG/2 ML INJECTION IV PRN (10:35)
[2024-01-02 11:44] VITALS: BP 156/85; TEMP 98.3; O2SAT 95
[2024-02-06] MEDS ORDERED: QUET50TA4 PO (09:18)
== END 2024-01-02 12:20 | disposition home or self-care (01) ==
LOC: M SDC 07:32
PROVIDERS: ATTEND Internal Medicine Pulmonary Disease
DX: C34.11 Malignant neoplasm of upper lobe, right bronchus or lung (principal); I10 Essential (primary) hypertension; K21.9 Gastro-esophageal reflux disease without esophagitis; N40.0 Benign prostatic hyperplasia without lower urinary tract symptoms; Z79.899 Other long term (current) drug therapy; Z79.82 Long term (current) use of aspirin; Z92.21 Personal history of antineoplastic chemotherapy; G31.83 Neurocognitive disorder with Lewy bodies; F02.84 Dementia in other diseases classified elsewhere, unspecified severity, with anxiety; Z86.73 Personal history of transient ischemic attack (TIA), and cerebral infarction without residual deficits; Z85.09 Personal history of malignant neoplasm of other digestive organs; Z90.49 Acquired absence of other specified parts of digestive tract
CPT/HCPCS: 31627; 31628; 31652; 71045; 76000; 88305; C1601; J0171; J1100; J2371; J2405; J3010

== ENCOUNTER → 2024-02-06 | Outpatient (CLI) | payer MEDICARE, OTHER ==
[~2024-02-06] MED LIST changes: -ALBUTEROL SULFATE 2.5MG/0.5ML INH NEB SOLN INH ONE; -LIDOCAINE PRES-FREE 2% 10ML AMP INH ONE
== END ==
LOC: M ONCR 08:43
PROVIDERS: ATTEND General Practice
DX: C34.11 Malignant neoplasm of upper lobe, right bronchus or lung (principal); G31.83 Neurocognitive disorder with Lewy bodies; Z71.2 Person consulting for explanation of examination or test findings; Z80.0 Family history of malignant neoplasm of digestive organs; Z79.82 Long term (current) use of aspirin; Z79.899 Other long term (current) drug therapy; Z90.49 Acquired absence of other specified parts of digestive tract; Z96.659 Presence of unspecified artificial knee joint

== ENCOUNTER 2024-03-04 10:30 | Outpatient (RCR) | payer MEDICARE, OTHER | END 2024-03-15 | LOC: M ONCR 10:30 | PROVIDERS: ATTEND General Practice | DX: Z51.0 Encounter for antineoplastic radiation therapy (principal); C34.11 Malignant neoplasm of upper lobe, right bronchus or lung ==

== ENCOUNTER → 2024-05-27 | Outpatient (CLI) | payer MEDICARE, OTHER ==
[2024-05-27 13:56] LABS: ALBUMIN 3.4 G/DL (3.2-5.2); BILIRUBIN,TOTAL 0.3 MG/DL (0.3-1.2); CALCIUM LEVEL 9.2 MG/DL (8.3-10.6); CREATININE FOR GFR 1.41 MG/DL (0.70-1.30); GLOMERULAR FILTRATION RATE 51.2 (>35); POTASSIUM SERUM 4.3 MMOL/L (3.5-5.1); TOTAL PROTEIN 6.5 G/DL (5.7-8.2)
== END ==
LOC: M ONCM 12:40
PROVIDERS: ATTEND General Practice
DX: C34.11 Malignant neoplasm of upper lobe, right bronchus or lung (principal)

== ENCOUNTER → 2024-05-28 | Outpatient (CLI) | payer MEDICARE, OTHER ==
[~2024-05-28] MED LIST changes: +ISOVUE-370 76% 100ML VIAL As Ordered ONE
== END ==
LOC: M RAD 12:19
PROVIDERS: ATTEND General Practice
DX: C34.11 Malignant neoplasm of upper lobe, right bronchus or lung (principal)
CPT/HCPCS: 71260; Q9967

== ENCOUNTER → 2024-06-04 | Outpatient (CLI) | payer MEDICARE, OTHER ==
[~2024-06-04] MED LIST changes: +ATIV1TAB10 PO; -ISOVUE-370 76% 100ML VIAL As Ordered ONE; +MORP1SOL PO; +MORP1SOL5 PO; +TRAN1DIS4 TOP
== END ==
LOC: M ONCR 10:05
PROVIDERS: ATTEND General Practice
DX: G31.83 Neurocognitive disorder with Lewy bodies (principal); C34.11 Malignant neoplasm of upper lobe, right bronchus or lung; Z92.3 Personal history of irradiation; Z85.09 Personal history of malignant neoplasm of other digestive organs; Z79.82 Long term (current) use of aspirin; Z79.899 Other long term (current) drug therapy; Z66 Do not resuscitate